=== PATIENT | female | born 1995 | race Caucasian/White ===

== ENCOUNTER 2020-12-26 07:30 | Emergency (ER) | payer MEDICAID, SELFPAY ==
[2020-12-26 07:42] VITALS: BP 126/76; PULSE 75; RESP 14; TEMP 36.8; O2SAT 98; BMI 24.1
--- NOTE | 2020-12-26 07:49 | ED.DENTAL ---
HPI - Dental/Oral General Chief complaint: Dental/Oral Stated complaint: tooth ache Time Seen by Provider: 12/26/20 07:35 Source: patient Mode of arrival: ambulatory Limitations: no limitations History of Present Illness MD Complaint: tooth pain Location: Tooth # (multiple upper R sided molars) Onset (ago): day(s) (2) Duration: constant Severity: moderate Relieving factors: nothing Exacerbating factors: chewing Context: history of dental caries and poor dental care Treatment prior to arrival: none Related Data Previous Rx's Medication Instructions Recorded clindamycin HCl 300 mg capsule 300 mg PO TID 7 Days #21 cap 12/26/20 tramadol 50 mg tablet 50 mg PO TID PRN #12 tab 12/26/20 Allergies Allergy/AdvReac Type Severity Reaction Status Date / Time penicillin V Allergy Unknown Verified 03/25/19 00:00 Penicillins [PENICILLINS] Allergy Unknown SWELLING Unverified 01/22/20 16:36 seasonal Allergy Unknown Uncoded 03/25/19 00:00 Review of Systems Review of Systems: Constitutional : No Fever, No Chills ENT/Mouth : No swallowing difficulty, no change in voice, positive dental pain, positive jaw pain, nofacial swelling Eyes: No Eye Pain, No Swelling Cardiovascular : No Chest Pain, No SOB Respiratory : No Cough, No Sputum Gastrointestinal : No Nausea, No Vomiting, No Diarrhea Genitourinary : No Dysuria Musculoskeletal : No Myalgias Skin : No rash Neuro : No Weakness, No Numbness, No Headache PMFSH Past Medical History Attestation statement: The following information was validated with the patient. Medical History Migraine Social History Social History (Updated 12/26/20 @ 07:57 by Sheila Cyr DO) Patient Tobacco Use Status: Current everyday Tobacco user Use of substances other than those prescribed or required for medical reasons: No Advance Directives: No Advance Directives Information Provided: No Physical Exam Vital Signs: Vital Signs: Last Vital Signs Temp 98.2 F 12/26/20 07:42 Pulse 75 12/26/20 07:42 Resp 14 12/26/20 07:42 BP 126/76 12/26/20 07:42 Pulse Ox 98 12/26/20 07:42 Body Mass Index 24.1 Appearance: Alert. Oriented X3. No acute distress. Eyes: Pupils equal, round and reactive to light. ENT: Pharynx normal. R sided upper molars dental decay mild erythema of gums no abscess noted. Neck: Normal inspection. Neck supple. CVS: Normal heart rate and rhythm. Pulses normal. Respiratory: No respiratory distress. Breath sounds normal. Abdomen: no trauma Skin: Skin warm and dry. Normal skin color. Extremities: No lower extremity edema. Neuro: Oriented X 3. No motor deficit. No sensory deficit. MDM - Dental/Oral MDM Narrative Medical decision making narrative: 25 yo female with R sided upper dental pain no abscess noted, no concern for deeper space infection, has poor dentition - PO abx pain control refer to dentist Discharge Plan Discharge Clinical Impression: Toothache, Dental caries Patient Disposition: Home, Self-Care Instructions: Toothache (ED), Mouth Care (ED) Additional Instructions: return to ED for any worsening symptoms or concerns take a probiotic or yogurt with antibiotics please follow up with your dentist Prescriptions: New clindamycin HCl 300 mg capsule 300 mg PO TID 7 Days Qty: 21 RF: 0 tramadol 50 mg tablet 50 mg PO TID PRN (Reason: pain) Qty: 12 RF: 0
== END 2020-12-26 08:03 | disposition home or self-care (01) ==
PROVIDERS: Emergency Provider Emergency Medicine; PCP Pediatrics
DX: K02.9 Dental caries, unspecified (principal); F17.200 Nicotine dependence, unspecified, uncomplicated; Z71.6 Tobacco abuse counseling; Z79.899 Other long term (current) drug therapy
CPT/HCPCS: 99283

== ENCOUNTER 2021-05-28 08:55 | Emergency (ER) | payer MEDICAID, SELFPAY ==
--- NOTE | ~2021-05-28 | US_ITS ---
EXAMINATION: US OBSTETRICAL ULTRASOUND CLINICAL INFORMATION: Abdominal pain and cramping. Positive test. COMPARISON: None. LMP: Unknown. Gestational age by maternal dates is . Estimated date of delivery by maternal dates is . TECHNIQUE: Transabdominal first trimester OB ultrasound FINDINGS: There is a single intrauterine gestational sac with visible yolk sac, embryo/fetus, and cardiac activity. There is no significant subchorionic hemorrhage or hematoma. HR: 139 beats per minute. CRL (crown rump length): 0.76 cm (6 weeks 5 days +/- 4 days). BALIEE (estimated date of delivery): 01/16/2022 +/- 4 days. MATERNAL ADNEXA: The right maternal ovary measures 3.2 x 2.2 x 1.9 cm. The left maternal ovary measures 2 x 1.9 x 1.4 cm. There is no significant maternal adnexal mass. No maternal pelvic ascites. US/US OB <= 14 weeks fetus IMPRESSION: 1. Single intrauterine gestation with ultrasound gestational age of 6 weeks 5 days +/- 4 days. 2. Estimated date of delivery is 01/16/2022 +/- 4 days. 3. No maternal adnexal mass or pelvic ascites.
[2021-05-28 09:53] VITALS: BP 115/65; PULSE 77; RESP 19; TEMP 36.6; O2SAT 100; BMI 24.1
[2021-05-28 10:19] LABS: MANUAL DIFF FLAG NO
[2021-05-28 10:26] LABS: Appearance Urine HAZY; Color Urine YELLOW; Glucose Urine UA NEG (NEG); Leukocyte Esterase Urine NEG (NEG); Nitrite Urine NEG (NEG); Specific Gravity - Urine >= 1.030 (1.005-1.025); Urine Blood NEG (NEG); Urine Ketones >=80 MG/DL (NEG); Urine Protein TRACE MG/DL (NEG-TRACE)
[2021-05-28 10:27] LABS: UPreg QC Valid YES; Urine Pregnancy POSITIVE (NEGATIVE)
[2021-05-28 10:30] LABS: Basophils Percent Auto 0.4 % (0-2); Eosinophils Absolute Auto 0.1 X10*3/uL (0.0-0.4); Eosinophils Percent Auto 0.5 % (0-4); Hematocrit 40.8 % (37.0-47.0); Hemoglobin 13.8 g/dl (12.0-16.0); Imm Gran Abs Auto 0.02 X10*3/uL (0.00-0.03); Imm Gran Pct Auto 0.2 % (0.0-0.4); Lymphocytes Absolute Auto 2.2 X10*3/uL (1.2-4.9); Lymphocytes Percent Auto 22.2 % (20-40); Mean Corpuscular HGB Conc 33.8 g/dl (31.0-35.0); Mean Corpuscular Hemoglobin 30.6 pg (27.0-33.0); Mean Corpuscular Volume 90.5 fL (80.0-98.0); Mean Platelet Volume 10.3 fL (9.4-12.3); Monocytes Absolute Auto 0.5 X10*3/uL (0.1-1.2); Monocytes Percent Auto 5.5 % (2-11); Neutrophils Percent Auto 71.2 % (45-73); Platelet Count 266 X10*3/uL (160-400); Red Blood Count 4.51 X10*6/uL (4.20-5.50); Red Cell Distribution Width 13.2 % (11.0-16.0); White Blood Count 9.8 X10*3/uL (4.8-10.8)
[2021-05-28 10:39] LABS: COVID-19 Test Negative (Negative)
[2021-05-28 10:42] LABS: Alanine Aminotransferase 7 U/L (0-31); Albumin Level 4.3 g/dL (3.5-5.0); Alkaline Phosphatase 57 U/L (39-117); Anion Gap 11 (12-20); Aspartate Amino Transferase 17 U/L (5-31); Bilirubin Direct 0.2 mg/dL (0.0-0.5); Bilirubin Total 0.3 mg/dL (0.0-1.0); Blood Urea Nitrogen 6 mg/dL (9-16); Calcium 9.8 mg/dL (8.4-10.2); Carbon Dioxide 27 mmol/L (22-29); Chloride 104 mmol/L (96-108); Creatinine Clr Calc Pharmacy 114.1; Estimated Glomerular Filt Rate > 60; Glucose Random 90 mg/dL (60-115); Lipase 11 U/L (8-78); Potassium 4.3 mmol/L (3.3-5.1); Sodium 138 mmol/L (135-145)
--- NOTE | 2021-05-28 11:57 | ED.ABDPAIN ---
HPI - Abdominal Pain General Chief Complaint: Abdominal Pain Stated Complaint: N/V/D Time Seen by Provider: 05/28/21 11:43 Source: patient Mode of arrival: ambulatory History of Present Illness HPI narrative: 25-year-old female with a past medical history of migraines presenting to the ED complaining of diffuse abdominal pain x6 days with associated nausea and vomiting. Admits to taking Zofran this morning with mild relief and smoking THC with relief at home. Denies fever, chills, diarrhea/constipation, dysuria/hematuria, flank pain, vaginal bleeding/discharge. LMP April MD elicited complaint: abdominal pain Onset (ago): day(s) Related Data Previous Rx's Medication Instructions Recorded clindamycin HCl 300 mg capsule 300 mg PO TID 7 Days #21 cap 12/26/20 tramadol 50 mg tablet 50 mg PO TID PRN #12 tab 12/26/20 Allergies Allergy/AdvReac Type Severity Reaction Status Date / Time penicillin V Allergy Unknown Verified 03/25/19 00:00 Penicillins [PENICILLINS] Allergy Unknown SWELLING Unverified 01/22/20 16:36 seasonal Allergy Unknown Uncoded 03/25/19 00:00 Review of Systems Review of Systems Constitutional: No Fever, No Chills, No Fatigue, No Malaise ENT/Mouth: No Ear Pain, No Nasal Congestion, No Sinus Pain, No sore throat Eyes: No Eye Pain, No Swelling, No Redness Cardiovascular: No Chest Pain, No SOB, No Palpitations Respiratory: No Cough, No Dyspnea Gastrointestinal: + Nausea, + Vomiting, No Diarrhea, No Constipation, + Abdominal pain Genitourinary: No irregular bleeding, Novaginal discharge, No Dysuria, No Urinary Frequency, No Hematuria, No Flank Pain, No Urinary Flow Changes Musculoskeletal: No joint pain, No Myalgias, No Joint Swelling Skin: No Skin Lesions, No rash Neuro: No Weakness, No Dizziness, No Headache Yes all other systems are reviewed and are negative Physical Exam Vital Signs: Vital Signs: Last Vital Signs Temp 98.6 F 05/28/21 12:31 Pulse 62 05/28/21 12:31 Resp 12 05/28/21 12:31 BP 99/56 L 05/28/21 12:31 Pulse Ox 100 05/28/21 12:31 BMI result Body Mass Index 24.1 Const: General: cooperative, healthy appearing, no acute distress and well developed Orientation/consciousness: patient oriented x3 Limitations: no limitations HENMT: Head: Yes normal to inspection and Yes atraumatic Ears: hearing grossly normal bilaterally General nose exam: Normal external nose present Face and sinus: Yes normal facial exam Eyes: General: appearance normal, both eyes and all related structures EOM: EOMs intact bilaterally Neck: Neck: Yes normal visual inspection and Yes trachea midline Resp: Effort & Inspection: normal respiratory effort and no respiratory distress Auscultation: clear to auscultation bilaterally, no rales, no rhonchi and no wheezes Cardio: Rate: regular rate Heart sounds: S1 normal heart sound present and S2 normal heart sound present GI: Inspection: Yes normal to inspection Palpation (GI): Soft to palpation, nontender, no guarding and not rigid : General: Yes no CVA tenderness Back/Spine/Pelvis: Back: no CVA tenderness Skin: Rashes: no rashes Wounds: no wounds Neuro: General: patient oriented x3, tone normal and moves all extremities Gait exam (Neuro): Normal gait present Extrem: General: Yes normal to inspection Course Course Course Narrative: -UA negative, urine positive > will obtain HCG -labs otherwise unremarkable -1310--beta quant 56,562 US OB <= 14 weeks fetus IMPRESSION: 1. Single intrauterine gestation with ultrasound gestational age of 6 weeks 5 days +/- 4 days. 2. Estimated date of delivery is 01/16/2022 +/- 4 days. 3. No maternal adnexal mass or pelvic ascites. > results discussed with patient including worrisome signs and symptoms and strict return precautions and need to follow-up with OBGYN. Patient verbalized understanding & feels safe for discharge home at this time MDM - Abdominal Pain MDM Narrative Medical decision making narrative: 25-year-old female with a past medical history of migraines presenting to the ED complaining of diffuse abdominal pain x6 days with associated nausea and vomiting. On exam vital signs stable, NAD, nontoxic appearing, abdomen soft/nontender, no rebound or guarding. No CVAT. Concern for gastroenteritis/food poisoning/gastritis vs . Low concern for appendicitis/diverticulitis/pancreatitis or cholecystitis/phthisis without tenderness on exam Plan: Labs, UA, Differential Diagnosis Differential diagnosis: Likely abdominal pain, constipation, gastroenteritis and peptic ulcer disease Medical Records Attestation: I reviewed the patient's medical records. Lab Data Attestation: I reviewed the patient's lab results. Result diagrams: 05/28/21 10:13 05/28/21 10:13 Labs: Lab Results 05/28/21 05/28/21 05/28/21 Range/Units 10:11 10:12 10:12 WBC (4.8-10.8) X10*3/uL RBC (4.20-5.50) X10*6/uL Hgb (12.0-16.0) g/dl Hct (37.0-47.0) % MCV (80.0-98.0) fL MCH (27.0-33.0) pg MCHC (31.0-35.0) g/dl RDW (11.0-16.0) % Plt Count (160-400) X10*3/uL MPV (9.4-12.3) fL Immature Gran % (Auto) (0.0-0.4) % Neut % (Auto) (45-73) % Lymph % (Auto) (20-40) % [place] % (Auto) (2-11) % Eos % (Auto) (0-4) % Baso % (Auto) (0-2) % Lymph # (Auto) (1.2-4.9) X10*3/uL [place] # (Auto) (0.1-1.2) X10*3/uL Eos # (Auto) (0.0-0.4) X10*3/uL Baso # (Auto) (0.0-0.2) X10*3/uL Abs Immat Gran (auto) (0.00-0.03) X10*3/uL Absolute Neuts (auto) (2.0-8.3) x10*3/uL Absolute Nucleated RBC (0.0-0.012) X10*3/uL Nucleated RBC % (auto) (0.0-0.2) /100WBC Sodium (135-145) mmol/L Potassium (3.3-5.1) mmol/L Chloride (96-108) mmol/L Carbon Dioxide (22-29) mmol/L Anion Gap (12-20) BUN (9-16) mg/dL Creatinine (0.5-1.4) mg/dL Estim Creat Clear Calc Estimated GFR Random Glucose (60-115) mg/dL Calcium (8.4-10.2) mg/dL Total Bilirubin (0.0-1.0) mg/dL Direct Bilirubin (0.0-0.5) mg/dL AST (5-31) U/L ALT (0-31) U/L Alkaline Phosphatase (39-117) U/L Total Protein (6.5-8.0) g/dL Albumin (3.5-5.0) g/dL Lipase (8-78) U/L Beta HCG, Quant mIU/mL Urine Color YELLOW Urine Appearance HAZY Urine pH 6.0 (5.0-8.0) Ur Specific [place] >= 1.030 H (1.005-1.025) Urine Protein TRACE (NEG-TRACE) MG/DL Urine Glucose (UA) NEG (NEG) MG/DL Urine Ketones >=80 (NEG) MG/DL Urine Blood NEG (NEG) Urine Nitrite NEG (NEG) Ur Leukocyte Esterase NEG (NEG) Urine Test POSITIVE H (NEGATIVE) COVID-19 (MERYL) Negative (Negative) COVID-19 Clin Com See Note 05/28/21 05/28/21 Range/Units 10:13 10:13 WBC 9.8 (4.8-10.8) X10*3/uL RBC 4.51 (4.20-5.50) X10*6/uL Hgb 13.8 (12.0-16.0) g/dl Hct 40.8 (37.0-47.0) % MCV 90.5 (80.0-98.0) fL MCH 30.6 (27.0-33.0) pg MCHC 33.8 (31.0-35.0) g/dl RDW 13.2 (11.0-16.0) % Plt Count 266 (160-400) X10*3/uL MPV 10.3 (9.4-12.3) fL Immature Gran % (Auto) 0.2 (0.0-0.4) % Neut % (Auto) 71.2 (45-73) % Lymph % (Auto) 22.2 (20-40) % [place] % (Auto) 5.5 (2-11) % Eos % (Auto) 0.5 (0-4) % Baso % (Auto) 0.4 (0-2) % Lymph # (Auto) 2.2 (1.2-4.9) X10*3/uL [place] # (Auto) 0.5 (0.1-1.2) X10*3/uL Eos # (Auto) 0.1 (0.0-0.4) X10*3/uL Baso # (Auto) 0.0 (0.0-0.2) X10*3/uL Abs Immat Gran (auto) 0.02 (0.00-0.03) X10*3/uL Absolute Neuts (auto) 7.0 (2.0-8.3) x10*3/uL Absolute Nucleated RBC 0.000 (0.0-0.012) X10*3/uL Nucleated RBC % (auto) 0.0 (0.0-0.2) /100WBC Sodium 138 (135-145) mmol/L Potassium 4.3 (3.3-5.1) mmol/L Chloride 104 (96-108) mmol/L Carbon Dioxide 27 (22-29) mmol/L Anion Gap 11 L (12-20) BUN 6 L (9-16) mg/dL Creatinine 0.69 (0.5-1.4) mg/dL Estim Creat Clear Calc 114.1 Estimated GFR > 60 Random Glucose 90 (60-115) mg/dL Calcium 9.8 (8.4-10.2) mg/dL Total Bilirubin 0.3 (0.0-1.0) mg/dL Direct Bilirubin 0.2 (0.0-0.5) mg/dL AST 17 (5-31) U/L ALT 7 (0-31) U/L Alkaline Phosphatase 57 (39-117) U/L Total Protein 7.0 (6.5-8.0) g/dL Albumin 4.3 (3.5-5.0) g/dL Lipase 11 (8-78) U/L Beta HCG, Quant 86478 mIU/mL Urine Color Urine Appearance Urine pH (5.0-8.0) Ur Specific [place] (1.005-1.025) Urine Protein (NEG-TRACE) MG/DL Urine Glucose (UA) (NEG) MG/DL Urine Ketones (NEG) MG/DL Urine Blood (NEG) Urine Nitrite (NEG) Ur Leukocyte Esterase (NEG) Urine Test (NEGATIVE) COVID-19 (MERYL) (Negative) COVID-19 Clin Com Discharge Plan Discharge Clinical Impression: at early stage Patient Disposition: Home, Self-Care Instructions: (ED) Additional Instructions: You are . You need to establish care with an OBGYN If you develop constant worsening abdominal pain, vaginal bleeding/discharge, fever, you are unable to eat or drink please return to the ED No drinking alcohol or using drugs Prescriptions: No Action clindamycin HCl 300 mg capsule 300 mg PO TID 7 Days Qty: 21 RF: 0 tramadol 50 mg tablet 50 mg PO TID PRN (Reason: pain) Qty: 12 RF: 0 Referrals: Federico Montanez MD [Physician] - 5 days [facility] Past Medical History Attestation statement: The following information was validated with the patient. Medical History Migraine Social History Social History Alcohol intake: never Patient Tobacco Use Status: Current everyday Tobacco user Advance Directives: No Advance Directives Information Provided: No
[2021-05-28 12:31] VITALS: BP 99/56; PULSE 62; RESP 12; TEMP 37; O2SAT 100
[2021-05-28 12:44] LABS: HCG Quantitative 56562 mIU/mL
== END 2021-05-28 14:05 | disposition home or self-care (01) ==
PROVIDERS: Physician Assistant; Emergency Provider Internal Medicine; PCP Pediatrics
DX: O26.891 Other specified pregnancy related conditions, first trimester (principal); R10.9 Unspecified abdominal pain; Z3A.01 Less than 8 weeks gestation of pregnancy; Z20.822 Contact with and (suspected) exposure to COVID-19; O99.331 Smoking (tobacco) complicating pregnancy, first trimester; F17.200 Nicotine dependence, unspecified, uncomplicated
CPT/HCPCS: 76801; 80048; 80076; 81003; 81025; 83690; 84702; 85025; 87635; 99284

== ENCOUNTER 2021-05-31 08:21 | Emergency (ER) | payer MEDICAID, SELFPAY ==
--- NOTE | ~2021-05-31 | US_ITS ---
EXAMINATION: US OBSTETRICAL ULTRASOUND CLINICAL INFORMATION: Cramping and abdominal pain and vomiting. 7 weeks . COMPARISON: Previous exam 05/28/2021. LMP: Unknown. Gestational age by maternal dates is . Estimated date of delivery by maternal dates is . TECHNIQUE: Transabdominal first trimester OB ultrasound FINDINGS: There is a single intrauterine gestational sac with visible yolk sac, embryo/fetus, and cardiac activity. There is no significant subchorionic hemorrhage or hematoma. HR: 147 beats per minute. CRL (crown rump length): 1.1 cm (7 weeks 2 days +/- 4 days). BAILEE (estimated date of delivery): 01/15/2022 +/- 4 days. MATERNAL ADNEXA: The right maternal ovary measures 3.3 x 1.8 x 4 cm. The left maternal ovary measures 2.1 x 1.8 x 2.2 cm. There is no significant maternal adnexal mass. No maternal pelvic ascites. US/US OB <= 14 weeks fetus IMPRESSION: 1. Single intrauterine gestation with ultrasound gestational age of 7 weeks 2 days +/- 4 days. 2. Estimated date of delivery is 01/15/2022 +/- 4 days. 3. No maternal adnexal mass or pelvic ascites.
[2021-05-31 08:39] VITALS: BP 123/84; PULSE 72; RESP 16; TEMP 36.8; O2SAT 99; BMI 25.1
--- NOTE | 2021-05-31 08:52 | ED_ITS ---
HPI - Abdominal Pain General Chief Complaint: Abdominal Pain Stated Complaint: cramping,vomiting - 7wks preg Time Seen by Provider: 05/31/21 08:50 Source: patient Limitations: no limitations History of Present Illness HPI narrative: This is a 25-year-old female who is about 7 weeks . She is 1 para 0. The last week she has had progressive nausea and feels like she has been unable to hold much down. She has been drinking some water. She nonetheless feels dehydrated. She has soreness in her abdomen from vomiting so much. She denies diarrhea, has not had a bowel movement in 2 days. She denies any vaginal bleeding. She denies any dysuria. She denies fever. Related Data Previous Rx's Medication Instructions Recorded clindamycin HCl 300 mg capsule 300 mg PO TID 7 Days #21 cap 12/26/20 tramadol 50 mg tablet 50 mg PO TID PRN #12 tab 12/26/20 metoclopramide HCl 10 mg tablet 10 mg PO Q6H PRN #12 tab 05/31/21 (Reglan) Allergies Allergy/AdvReac Type Severity Reaction Status Date / Time penicillin V Allergy Unknown Verified 03/25/19 00:00 Penicillins Allergy Unknown SWELLING Unverified 01/22/20 16:36 [PENICILLINS] seasonal Allergy Unknown Uncoded 03/25/19 00:00 Review of Systems Review of Systems Yes all other systems are reviewed and are negative Constitutional: Denies chills and Denies fever(s) Eyes: Reports no additional eye complaints Reports system reviewed and no additional complaints, except as documented Cardiovascular: Reports no additional cardiovascular complaints Respiratory: Reports no additional respiratory complaints Gastrointestinal: Reports abdominal pain (Cramping mostly mid to upper abdomina l), Reports nausea and Reports vomiting Genitourinary: Reports no additional female genitourinary complaints Musculoskeletal: Reports no additional musculoskeletal complaints Reports system reviewed and no additional complaints, except as documented and Denies Sensory deficit (Neuro) Physical Exam Verdana 4l Vital Signs: Verdana 4d Verdana 4d Vital Signs: Verdana 4d Verdana 4Bd Last Vital Signs Verdana 4d Flute Polisher New 4d Flute Polisher New 4d Temp 98.2 F 05/31/21 08:39 Flute Polisher New 4d Pulse 75 05/31/21 11:17 Flute Polisher New 4d Resp 17 01/25/22 11:17 BP 115/66 05/31/21 11:17 Pulse Ox 100 05/31/21 11:17 BMI result Body Mass Index 25.1 Const: General: cooperative, no acute distress and alert Orientation/consciousness: patient oriented x3 HENMT: Head: Yes normal to inspection Eyes: General: appearance normal, both eyes and all related structures Eyelids: Yes eyelids normal Conjunctivae: conjunctivae normal Pupils: Equal, round and reactive pupils present Neck: Neck: Yes normal visual inspection and Yes supple Chest: Chest palpation & inspection: normal inspection of the chest Resp: Effort & Inspection: normal respiratory effort Auscultation: clear to auscultation bilaterally Cardio: Rate: regular rate Rhythm: regular rhythm Heart sounds: S1 normal heart sound present, S2 normal heart sound present, no gallops, no murmurs and no rubs GI: Palpation (GI): Soft to palpation, Tenderness to palpation present (GI) (Mild and diffuse abdominal tenderness) and Other GI palpation findings present (Non- distended) Auscultation: normal bowel sounds Skin: General skin exam: no rashes or lesions noted Neuro: General: patient oriented x3, no focal motor deficits and CN's II-XI intact bilaterally Cranial nerves: Yes Equal, round and reactive pupils present Cognition (Neuro): normal cognition Motor exam (neuro): 5/5 motor strength present throughout Sensory Exam: No Sensory deficit (Neuro) Extrem: General: Yes normal to inspection and Yes no pedal edema Psych: Appearance: grossly normal Affect: normal affect MDM - Abdominal Pain MDM Narrative Medical decision making narrative: Patient about 7 weeks with nausea and vomiting, some abdominal cramping . Ultrasound shows a normal intrauterine at around 7 weeks, EDC January 15. Patient has no vaginal bleeding. Patient states she has talked to her OBGYN who had called in a prescription for vitamins, and I am presuming also pyridoxine. Will prescribe Reglan to take for any vomiting not controlled by vitamins. Patient had a benign abdominal examination, negative urinalysis Lab Data Attestation: I reviewed the patient's lab results. Result diagrams: 05/31/21 09:05 05/31/21 10:06 Labs: Lab Results 05/31/21 05/31/21 05/31/21 Range/Units 09:05 10:06 11:07 WBC 9.9 (4.8-10.8) X10*3/uL RBC 4.25 (4.20-5.50) X10*6/uL Hgb 12.8 (12.0-16.0) g/dl Hct 37.3 (37.0-47.0) % MCV 87.8 (80.0-98.0) fL MCH 30.1 (27.0-33.0) pg MCHC 34.3 (31.0-35.0) g/dl RDW 12.8 (11.0-16.0) % Plt Count 244 (160-400) X10*3/uL MPV 10.2 (9.4-12.3) fL Immature Gran % (Auto) 0.4 (0.0-0.4) % Neut % (Auto) 79.6 H (45-73) % Lymph % (Auto) 15.5 L (20-40) % [place] % (Auto) 4.2 (2-11) % Eos % (Auto) 0.1 (0-4) % Baso % (Auto) 0.2 (0-2) % Lymph # (Auto) 1.5 (1.2-4.9) X10*3/uL [place] # (Auto) 0.4 (0.1-1.2) X10*3/uL Eos # (Auto) 0.0 (0.0-0.4) X10*3/uL Baso # (Auto) 0.0 (0.0-0.2) X10*3/uL Abs Immat Gran (auto) 0.04 H (0.00-0.03) X10*3/uL Absolute Neuts (auto) 7.9 (2.0-8.3) x10*3/uL Absolute Nucleated RBC 0.000 (0.0-0.012) X10*3/uL Nucleated RBC % (auto) 0.0 (0.0-0.2) /100WBC Sodium 136 (135-145) mmol/L Potassium 4.0 (3.3-5.1) mmol/L Chloride 108 (96-108) mmol/L Carbon Dioxide 19 L (22-29) mmol/L Anion Gap 13 (12-20) BUN 5 L (9-16) mg/dL Creatinine 0.62 (0.5-1.4) mg/dL Estim Creat Clear Calc 137.2 Estimated GFR > 60 Random Glucose 95 (60-115) mg/dL Calcium 8.8 D (8.4-10.2) mg/dL Total Bilirubin 0.4 (0.0-1.0) mg/dL AST 14 (5-31) U/L ALT < 6 (0-31) U/L Alkaline Phosphatase 49 (39-117) U/L Total Protein 6.4 L (6.5-8.0) g/dL Albumin 3.9 (3.5-5.0) g/dL Urine Color YELLOW Urine Appearance HAZY Urine pH 6.5 (5.0-8.0) Ur Specific [place] 1.020 (1.005-1.025) Urine Protein TRACE (NEG-TRACE) MG/DL Urine Glucose (UA) NEG (NEG) MG/DL Urine Ketones >=80 (NEG) MG/DL Urine Blood NEG (NEG) Urine Nitrite NEG (NEG) Ur Leukocyte Esterase NEG (NEG) Imaging Data ultrasound: Radiologist's impression: IMPRESSION: 1. Single intrauterine gestation with ultrasound gestational age of? 7 weeks 2 days +/- 4 days. 2. Estimated date of delivery is 01/15/2022 +/- 4 days. 3. No maternal adnexal mass or pelvic ascites. Discharge Plan Discharge Clinical Impression: Hyperemesis Patient Disposition: Home, Self-Care Instructions: Hyperemesis Gravidarum (ED) Additional Instructions: Start taking the vitamins as ordered by your OBGYN. This likely also includes pyridoxine which can help with nausea. If these are not controlling her nausea vomiting, use the Reglan as prescribed. Continue drinking liquids a little bit of time to keep herself hydrated. Try to eat or drink chicken with rice soup, as this will provide some protein and carbohydrate. Return for any new or worsened symptoms such as progressive abdominal pain, uncontrolled vomiting Prescriptions: New metoclopramide HCl [Reglan] 10 mg tablet 10 mg PO Q6H PRN (Reason: nausea and vomiting) Qty: 12 0RF No Action clindamycin HCl 300 mg capsule 300 mg PO TID 7 Days Qty: 21 0RF tramadol 50 mg tablet 50 mg PO TID PRN (Reason: pain) Qty: 12 0RF Interventions: ED Discharge Assessment Last Done: 05/31/21 12:05 Discharge Date/Time: 05/31/21 12:06 [facility] Past Medical History Medical History Migraine Social History Social History Alcohol intake: never Patient Tobacco Use Status: Current everyday Tobacco user Advance Directives: No Advance Directives Information Provided: No Patient : Yes
[2021-05-31 09:10] LABS: MANUAL DIFF FLAG NO
[2021-05-31 09:11] LABS: Basophils Percent Auto 0.2 % (0-2); Eosinophils Percent Auto 0.1 % (0-4); Hematocrit 37.3 % (37.0-47.0); Hemoglobin 12.8 g/dl (12.0-16.0); Imm Gran Abs Auto 0.04 X10*3/uL (0.00-0.03); Imm Gran Pct Auto 0.4 % (0.0-0.4); Lymphocytes Absolute Auto 1.5 X10*3/uL (1.2-4.9); Lymphocytes Percent Auto 15.5 % (20-40); Mean Corpuscular HGB Conc 34.3 g/dl (31.0-35.0); Mean Corpuscular Hemoglobin 30.1 pg (27.0-33.0); Mean Corpuscular Volume 87.8 fL (80.0-98.0); Mean Platelet Volume 10.2 fL (9.4-12.3); Monocytes Absolute Auto 0.4 X10*3/uL (0.1-1.2); Monocytes Percent Auto 4.2 % (2-11); Neutrophils Absolute Auto 7.9 x10*3/uL (2.0-8.3); Neutrophils Percent Auto 79.6 % (45-73); Platelet Count 244 X10*3/uL (160-400); Red Blood Count 4.25 X10*6/uL (4.20-5.50); Red Cell Distribution Width 12.8 % (11.0-16.0); White Blood Count 9.9 X10*3/uL (4.8-10.8)
[2021-05-31] MEDS: ondansetron HCL 4 MG/2 ML VIAL IVPUSH (09:11)
[2021-05-31] MEDS: 0.9 % Sodium Chloride 1,000 ML 999 ML IV (09:11)
[2021-05-31 10:45] LABS: Alanine Aminotransferase < 6 U/L (0-31); Albumin Level 3.9 g/dL (3.5-5.0); Alkaline Phosphatase 49 U/L (39-117); Anion Gap 13 (12-20); Aspartate Amino Transferase 14 U/L (5-31); Bilirubin Total 0.4 mg/dL (0.0-1.0); Blood Urea Nitrogen 5 mg/dL (9-16); Calcium 8.8 mg/dL (8.4-10.2); Carbon Dioxide 19 mmol/L (22-29); Chloride 108 mmol/L (96-108); Creatinine Clr Calc Pharmacy 137.2; Estimated Glomerular Filt Rate > 60; Glucose Random 95 mg/dL (60-115); Sodium 136 mmol/L (135-145); Total Protein 6.4 g/dL (6.5-8.0)
[2021-05-31 11:17] VITALS: BP 115/66; PULSE 75; RESP 17; O2SAT 100
[2021-05-31 11:50] LABS: Appearance Urine HAZY; Color Urine YELLOW; Glucose Urine UA NEG (NEG); Leukocyte Esterase Urine NEG (NEG); Nitrite Urine NEG (NEG); PH 6.5 (5.0-8.0); Urine Blood NEG (NEG); Urine Ketones >=80 MG/DL (NEG); Urine Protein TRACE MG/DL (NEG-TRACE)
== END 2021-05-31 12:06 | disposition home or self-care (01) ==
PROVIDERS: Emergency Provider Emergency Medicine; PCP Pediatrics
DX: O21.0 Mild hyperemesis gravidarum (principal); Z3A.01 Less than 8 weeks gestation of pregnancy; Z79.899 Other long term (current) drug therapy
CPT/HCPCS: 36415; 76801; 80053; 81003; 85025; 96361; 96374; 99284; J2405

== ENCOUNTER → 2021-06-13 08:05 | Outpatient (BNVA) | payer MEDICAID, SELFPAY | PROVIDERS: PCP Pediatrics; Visit Provider Advanced Practice Midwife | DX: O21.9 Vomiting of pregnancy, unspecified (principal); N92.6 Irregular menstruation, unspecified; Z3A.01 Less than 8 weeks gestation of pregnancy | CPT/HCPCS: 99202 ==

== ENCOUNTER → 2021-06-22 09:52 | Outpatient (BNVA) | payer MEDICAID, SELFPAY | PROVIDERS: PCP Pediatrics; Visit Provider Advanced Practice Midwife | DX: Z13.89 Encounter for screening for other disorder (principal) | CPT/HCPCS: 99212 ==

== ENCOUNTER 2021-07-08 12:08 | Outpatient (REF) | payer MEDICAID, SELFPAY ==
[2021-07-08 16:23] LABS: CT PCR NOT DETECTED (Not Detect.); NG PCR NOT DETECTED (Not Detect.)
== END 2021-07-08 12:09 | disposition home or self-care (01) ==
LOC: HO.LAB 12:08
PROVIDERS: PCP Pediatrics; Visit Provider Advanced Practice Midwife
DX: Z34.91 Encounter for supervision of normal pregnancy, unspecified, first trimester (principal)
CPT/HCPCS: 87491; 87591; 88142

== ENCOUNTER 2021-07-08 12:50 | Outpatient (REF) | payer MEDICAID, SELFPAY ==
--- NOTE | ~2021-07-08 | US_ITS ---
EXAMINATION: OBSTETRICAL ULTRASOUND, FIRST TRIMESTER HISTORY: 25-year-old at the 12.5 weeks of gestation NT screening COMPARISON: 05/31/2021 TECHNIQUE: Real time transabdominal imaging with color and M-mode Doppler. FINDINGS: A single, live IUP CRL of 63.6 mm c/w 12.6wks is noted. Heart Rate: 160 beats per minute. Normal yolk sac seen. NT was 1.1.mm. NB Present The embryo appears sonographically wnl for this GA. Both maternal ovaries are seen and appear normal. GESTATIONAL AGE: 1. Established GA: 12.5 wks 2. GA from [facility]: 12.6 wks ESTIMATED DATE OF DELIVERY: 1. Established BAILEE: 01/15/2022 2. BAILEE from [facility]: 01/14/2022 US/US OB 1T nuc measure IMPRESSION: 1. A single live IUP 2. Size equals dates 3. NT of 1.1 mm MFM Consultation: I reviewed the ultrasound findings along with significance of NT measurement. The NT of less than 3mm is generally reassuring. However, the sensitivity for T21 detection is only 60%. I reviewed the availability of serum aneuploidy screening which includes cell-free DNA and placental protein based tests. I discussed the sensitivity, false-positive rate, and other limitations associated with each test. I also reviewed the availability of invasive diagnostic tests that are associated small but definite risk of miscarriage. We also reviewed the differences between screening tests and diagnostic tests. After our discussion, she opted for the First trimester screening that is based on cell-free DNA or non-invasive testing (NIPT). The result will be faxed to your office in approximately 7 days. A follow up at 18 weeks for survey has been scheduled. Thank you very much for this referral. Total time 30 minutes. The time spent was devoted to counseling the patient about the disease and diagnosis, coordinating care including reviewing her records, pertinent lab data and studies, as well as discussing diagnostic evaluation and workup, plan therapeutic interventions and future disposition of care. This includes any additional research needed to obtain further information in formulating the plan of care of this patient. This note was generated with a voice recognition program. Please excuse any errors which may have been overlooked during my review of this note. Sometimes these errors may affect the content or meaning of a given sentence.
== END 2021-07-08 12:51 | disposition home or self-care (01) ==
LOC: HO.US 12:50
PROVIDERS: PCP Pediatrics; Visit Provider Advanced Practice Midwife
DX: Z34.92 Encounter for supervision of normal pregnancy, unspecified, second trimester (principal); Z3A.12 12 weeks gestation of pregnancy
CPT/HCPCS: 76813; 99212

== ENCOUNTER 2021-07-13 08:06 | Outpatient (REF) | payer MEDICAID, SELFPAY ==
[2021-07-13 10:13] LABS: Hematocrit 37.4 % (37.0-47.0); Hemoglobin 12.5 g/dl (12.0-16.0); Mean Corpuscular HGB Conc 33.4 g/dl (31.0-35.0); Mean Corpuscular Hemoglobin 30.3 pg (27.0-33.0); Mean Corpuscular Volume 90.8 fL (80.0-98.0); Mean Platelet Volume 11.1 fL (9.4-12.3); Platelet Count 218 X10*3/uL (160-400); Red Blood Count 4.12 X10*6/uL (4.20-5.50); Red Cell Distribution Width 13.4 % (11.0-16.0); White Blood Count 9.1 X10*3/uL (4.8-10.8)
[2021-07-13 10:50] LABS: Alanine Aminotransferase 7 U/L (0-31); Aspartate Amino Transferase 16 U/L (5-31); Blood Urea Nitrogen 5 mg/dL (9-16); Estimated Glomerular Filt Rate > 60; Glucose 1 Hour PP 50gm Dose 74 mg/dL (60-140)
[2021-07-13 11:04] LABS: ~HepC Num1 3.54 S/CO (0.00-0.79); ~Hepatitis C Antibody Reactive (Nonreactive)
[2021-07-13 11:13] LABS: HBsAGNum1 0.21 S/CO (0.00-0.99); HIV AB/AG Nonreactive (Nonreactive); HIV Num 1 0.12 S/CO (0.00-0.99); Hepatitis B Surface Antigen Negative (Negative)
[2021-07-13 11:23] LABS: Amphetamine Screen Urine Not Detected (Not Detect); Barbiturates, Urine Not Detected (Not Detect); Benzodiazepines Screen Urine Not Detected (Not Detect); Cannabinoid Screen Urine POSITIVE (Not Detect); Cocaine Screen Urine Not Detected (Not Detect); Creatinine Urine 290.46 mg/dL; Fentanyl, urine Not Detected (Not Detect); Opiate Screen Urine Not Detected (Not Detect); Phencyclidine Screen Urine Not Detected (Not Detect); Protein/Creatinine Ratio, Ur 0.05 (<0.2); Total Protein Urine Random 15 mg/dL (<12)
[2021-07-13 11:36] LABS: Syphilis Screen Nonreactive (Nonreactive)
[2021-07-14 09:01] LABS: Rubella IgG Antibody <0.90 Index; Varicella IgG Antibody <135.00 index
== END 2021-07-13 08:07 | disposition home or self-care (01) ==
LOC: HO.LAB 08:06
PROVIDERS: PCP Pediatrics; Visit Provider Advanced Practice Midwife
DX: Z34.90 Encounter for supervision of normal pregnancy, unspecified, unspecified trimester (principal); Z84.89 Family history of other specified conditions
CPT/HCPCS: 80307; 82565; 84156; 84450; 84460; 84520; 84550; 85027; 86762; 86780; 86787; 86803; 86850; 86900; 86901; 87086; 87340; 87389

== ENCOUNTER 2021-08-08 11:50 | Outpatient (REF) | payer MEDICAID, SELFPAY | END 2021-08-08 11:51 | disposition home or self-care (01) | LOC: HO.LAB 11:50 | PROVIDERS: PCP Pediatrics; Visit Provider Advanced Practice Midwife | DX: O99.342 Other mental disorders complicating pregnancy, second trimester (principal); F41.9 Anxiety disorder, unspecified; O99.112 Other diseases of the blood and blood-forming organs and certain disorders involving the immune mechanism complicating pregnancy, second trimester; B19.20 Unspecified viral hepatitis C without hepatic coma; O26.892 Other specified pregnancy related conditions, second trimester; G43.909 Migraine, unspecified, not intractable, without status migrainosus; Z3A.17 17 weeks gestation of pregnancy; J30.2 Other seasonal allergic rhinitis; Z87.891 Personal history of nicotine dependence; Z88.1 Allergy status to other antibiotic agents; Z88.0 Allergy status to penicillin | CPT/HCPCS: 81003; 87086; 99212 ==

== ENCOUNTER 2021-08-26 09:55 | Outpatient (REF) | payer MEDICAID, SELFPAY ==
--- NOTE | ~2021-08-26 | US_ITS ---
EXAMINATION: US OBSTETRICAL CLINICAL INFORMATION: 26-year-old at 19.5 weeks of gestation Screening for anomaly COMPARISON: 07/08/2021 TECHNIQUE: Real-time transabdominal ultrasound was performed using C1-5 megahertz transducer. FINDINGS: A single, active, fetus is seen in vertex presentation. The placenta is anterior without previa, and the amniotic fluid volume is wnl. MEASUREMENTS: 1. Biparietal Diameter: 4.95 cm; 21.0 wks 2. Occipital Frontal Diameter: 6.3 cm 3. Head Circumference: 17.8 cm; 17.2 wks 4. Abdominal Circumference: 15.2 cm; 20.3 wks 5. Femur Length: 3.4 cm; 20.6 wks 6. Humerus Length: 3.2 cm; 20.6 wks 7. Tibia Length: 3.0 cm; 21.1 wks 8. Ulna Length: 3.1 cm; 21.5 wks 9. Lateral ventricle: 0.64 cm 10. Cerebellum: 2.1 cm; 21.2 wks 11. Cisterna Magna: 0.52 cm 12. Nuchal Fold: 4.0 mm 13. Heart Rate: 156 beats per minute Rt ovary: normal Lt ovary: normal Cervical length 3.2 cm on T/A. GESTATIONAL AGE: 1. Established GA: 19.5 wks 2. GA from [facility]: 20.5 wks ESTIMATED DATE OF DELIVERY: 1. Established BAILEE: 01/15/2022 2. BAILEE from [facility]: 01/08/2022 ANATOMY: The visualized anatomy includes but not limited to: 1. Cranium: Normal 2. Intracranial anatomy: cavum septum pellucidi, lateral ventricles, choroid plexus, cerebellum, posterior fossa, third and fourth ventricles. 3. face: orbits, lip/palate, profile, nasal bone 4. Heart: four-chamber view of the heart, ventricular septum, foramen ovale, pulmonary vein, left and right outflow tracts, three-vessel view, 3 vessel trachea view, aortic and ductal arches, situs.. 5. Diaphragm: Normal 6. Abdominal wall: Normal 7. Cord Insertion: Normal 8. Spine: Cervical, thoracic, lumbar, sacral. 9. Stomach: Normal size and shape 10. Right Kidney: Normal 11. Left Kidney: Normal 12. 3 vessel cord: Normal 13. Upper extremity: Open hands, fifth digit. 14. Lower extremity: Tibia, fibula, bilateral feet. 15. Bladder: Normal 16. Genitalia: Female, patient aware US/US OB /maternal detail IMPRESSION: 1. Single, living, intrauterine with appropriate biometry. 2. Normal survey DISCUSSION: I reviewed today's ultrasound findings. We discussed the limitations of ultrasound in diagnosing aneuploidy and other congenital abnormalities. I reviewed the differences between screening test and diagnostic test. Amniocentesis was discussed and declined. She was informed that the baseline incidence of congenital abnormalities is approximately 3-5%. Not all these conditions are diagnosable in utero. RECOMMENDATIONS: Follow-up when necessary Thank you for allowing me to participate in her care. Total time 20 minutes. The time spent was devoted to counseling the patient about the disease and diagnosis, coordinating care including reviewing her records, pertinent lab data and studies, as well as discussing diagnostic evaluation and workup, plan therapeutic interventions and future disposition of care. This includes any additional research needed to obtain further information in formulating the plan of care of this patient. This note was generated with a voice recognition program. Please excuse any errors which may have been overlooked during my review of this note. Sometimes these errors may affect the content or meaning of a given sentence.
== END 2021-08-26 09:56 | disposition home or self-care (01) ==
LOC: HO.US 09:55
PROVIDERS: Visit Provider Advanced Practice Midwife
DX: Z34.92 Encounter for supervision of normal pregnancy, unspecified, second trimester (principal); Z3A.19 19 weeks gestation of pregnancy
CPT/HCPCS: 76811

== ENCOUNTER → 2021-09-09 11:12 | Outpatient (BNVA) | payer MEDICAID, SELFPAY | PROVIDERS: PCP Pediatrics; Visit Provider Advanced Practice Midwife | DX: O98.412 Viral hepatitis complicating pregnancy, second trimester (principal); R76.8 Other specified abnormal immunological findings in serum; Z3A.21 21 weeks gestation of pregnancy; Z86.19 Personal history of other infectious and parasitic diseases | CPT/HCPCS: 99212 ==

== ENCOUNTER → 2021-10-07 13:38 | Outpatient (BNVA) | payer MEDICAID, SELFPAY | PROVIDERS: PCP Pediatrics; Visit Provider Advanced Practice Midwife | DX: O98.412 Viral hepatitis complicating pregnancy, second trimester (principal); R76.8 Other specified abnormal immunological findings in serum | CPT/HCPCS: 99212 ==

== ENCOUNTER → 2021-10-17 15:00 | Outpatient (BNVA) | payer MEDICAID, SELFPAY | PROVIDERS: PCP Pediatrics; Referring Provider Pediatrics; Visit Provider Nurse Practitioner | DX: Z86.19 Personal history of other infectious and parasitic diseases (principal) | CPT/HCPCS: 99202 ==

== ENCOUNTER 2021-10-18 07:40 | Outpatient (REF) | payer MEDICAID, SELFPAY ==
[2021-10-18 08:43] LABS: Hematocrit 36.3 % (37.0-47.0); Hemoglobin 12.1 g/dl (12.0-16.0); Mean Corpuscular HGB Conc 33.3 g/dl (31.0-35.0); Mean Corpuscular Hemoglobin 30.6 pg (27.0-33.0); Mean Corpuscular Volume 91.7 fL (80.0-98.0); Mean Platelet Volume 10.7 fL (9.4-12.3); Platelet Count 235 X10*3/uL (160-400); Red Blood Count 3.96 X10*6/uL (4.20-5.50); Red Cell Distribution Width 13.2 % (11.0-16.0); White Blood Count 11.8 X10*3/uL (4.8-10.8)
[2021-10-18 09:13] LABS: Alanine Aminotransferase 8 U/L (0-31); Albumin Level 3.5 g/dL (3.5-5.0); Alkaline Phosphatase 86 U/L (39-117); Aspartate Amino Transferase 22 U/L (5-31); Bilirubin Direct < 0.2 mg/dL (0.0-0.5); Bilirubin Total 0.3 mg/dL (0.0-1.0); Total Protein 6.2 g/dL (6.5-8.0)
[2021-10-19 08:17] LABS: Syphilis Screen Nonreactive (Nonreactive)
[2021-10-19 16:41] LABS: HCV RNA PCR Qn <1.18 NOT DETECTED Log IU/mL (NOT DETECTED); HCV RNA PCR Qn <15 NOT DETECTED IU/mL (NOT DETECTED)
== END 2021-10-18 07:41 | disposition home or self-care (01) ==
LOC: HO.LAB 07:40
PROVIDERS: Absent Provider Advanced Practice Midwife; PCP Pediatrics; Visit Provider Nurse Practitioner
DX: Z34.92 Encounter for supervision of normal pregnancy, unspecified, second trimester (principal); Z86.19 Personal history of other infectious and parasitic diseases; Z3A.00 Weeks of gestation of pregnancy not specified
CPT/HCPCS: 36415; 80076; 85027; 86780; 87522; 87902

== ENCOUNTER → 2021-10-21 08:24 | Outpatient (BNVA) | payer MEDICAID, SELFPAY | PROVIDERS: PCP Pediatrics; Visit Provider Advanced Practice Midwife | DX: O99.612 Diseases of the digestive system complicating pregnancy, second trimester (principal); K59.00 Constipation, unspecified; K21.9 Gastro-esophageal reflux disease without esophagitis; O26.892 Other specified pregnancy related conditions, second trimester; R12 Heartburn; O98.412 Viral hepatitis complicating pregnancy, second trimester; B19.20 Unspecified viral hepatitis C without hepatic coma; O99.342 Other mental disorders complicating pregnancy, second trimester; F41.9 Anxiety disorder, unspecified; Z3A.27 27 weeks gestation of pregnancy | CPT/HCPCS: 99212 ==

== ENCOUNTER → 2021-11-01 13:00 | Outpatient (BNVA) | payer MEDICAID, SELFPAY | PROVIDERS: PCP Pediatrics; Visit Provider Nurse Practitioner | DX: Z86.19 Personal history of other infectious and parasitic diseases (principal) | CPT/HCPCS: 99212 ==

== ENCOUNTER → 2021-11-11 14:14 | Outpatient (BNVA) | payer MEDICAID, SELFPAY | PROVIDERS: PCP Pediatrics; Visit Provider Advanced Practice Midwife | DX: Z34.83 Encounter for supervision of other normal pregnancy, third trimester (principal); Z3A.30 30 weeks gestation of pregnancy | CPT/HCPCS: 81003; 99212 ==

== ENCOUNTER → 2021-11-25 10:59 | Outpatient (BNVA) | payer MEDICAID, SELFPAY | PROVIDERS: PCP Pediatrics; Visit Provider Advanced Practice Midwife | DX: O99.613 Diseases of the digestive system complicating pregnancy, third trimester (principal); K59.00 Constipation, unspecified; O21.9 Vomiting of pregnancy, unspecified; O99.343 Other mental disorders complicating pregnancy, third trimester; F41.9 Anxiety disorder, unspecified; O98.413 Viral hepatitis complicating pregnancy, third trimester; B19.20 Unspecified viral hepatitis C without hepatic coma; O26.893 Other specified pregnancy related conditions, third trimester; R12 Heartburn; Z3A.32 32 weeks gestation of pregnancy; Z23 Encounter for immunization | CPT/HCPCS: 90471; 90715; 99212 ==

== ENCOUNTER → 2022-01-19 09:39 | Outpatient (BNVA) | payer MEDICAID, SELFPAY | PROVIDERS: Visit Provider Advanced Practice Midwife | DX: Z39.2 Encounter for routine postpartum follow-up (principal) | CPT/HCPCS: 99212 ==

== ENCOUNTER 2022-02-11 08:03 | Emergency (ER) | payer MEDICAID, SELFPAY ==
[2022-02-11 08:10] VITALS: BP 124/78; PULSE 104; RESP 17; TEMP 36.6; O2SAT 96; BMI 25.0
[2022-02-11 08:30] LABS: Appearance Urine Clear; Color Urine Dark Yellow; Glucose Urine UA Negative (Negative); Leukocyte Esterase Urine Negative (Negative); Nitrite Urine Negative (Negative); PH 5.5 (5.0-9.0); Specific Gravity - Urine >= 1.030 (1.005-1.025); UMIC TRIGGER UACC YES; Urine Blood Negative (Negative); Urine Ketones Trace mg/dL (Negative); Urine Protein 30 (1+) mg/dL (Neg-Trace)
[2022-02-11 08:31] LABS: UPreg QC Valid YES; Urine Pregnancy NEGATIVE (NEGATIVE)
[2022-02-11 08:35] LABS: Bacteria Urine None Seen (None Seen); Hyaline Casts Urine 0-2 /LPF (0-2); RBC Urine 0-2 /HPF (0-2); Squamous Epithelial Cell Urine 0-2 /HPF (0-2); WBC Urine 0-5 /HPF (0-5)
[2022-02-11 08:40] LABS: COVID-19 Test Negative (Negative); IDNOW Serial# 16C4AD1C
--- NOTE | 2022-02-11 09:29 | ED.ANXIETY ---
HPI - Anxiety General Chief Complaint: Anxiety Stated Complaint: body pain, anxiety Time Seen by Provider: 02/11/22 09:27 Source: patient Mode of arrival: ambulatory Limitations: no limitations History of Present Illness HPI narrative: 26 yo female presenting to the ER with post- anxiety. She delivered a premature baby in December who required a NICU stay for one month. Baby came home on January 07. She has been doing pretty well as a first time mom since her daughter came home. The last week or so her anxiety has significantly increased. She feels like she isn't doing enough for her daughter even though everyone is telling her she is. She brought her baby to the doctor yesterday for a well check and she was told she may be over feeding the baby with significant increases in her growth percentiles. Patient states she is anxious about small things. She is not eating well. She is sleeping ok and taking showers daily but still feels like she is not taking good care of herself. She denies any suicidality or thoughts of harming her baby. She used to have a therapist a long time ago but felt they did not have a good rapport. She has never been on medications for anxiety or depression before. MD complaint: anxiety Onset (ago): week(s) Severity: moderate Quality: constant Place: home History of similar episodes: Yes Provoking factors: emotional stress Relieving factors: nothing Exacerbating factors: nothing Associated symptoms: other (poor PO intake) Related Data Home Medications Medication Instructions Recorded Confirmed fluticasone propionate 50 1 spray intranasal DAILY 10/17/21 11/11/21 mcg/actuation nasal spray,suspension doxycycline monohydrate 100 mg 100 mg PO BID 01/19/22 tablet Previous Rx's Medication Instructions Recorded medroxyprogesterone 150 mg/mL 150 mg IM [id number] #1 mL 01/19/22 intramuscular suspension (Depo-Provera) Allergies Allergy/AdvReac Type Severity Reaction Status Date / Time penicillin V Allergy Unknown Unknown Verified 01/19/22 09:46 seasonal Allergy Unknown Unknown Uncoded 11/25/21 11:03 Review of Systems Review of Systems: Constitutional: No Fever, No Chills Cardiovascular: No Chest Pain, No SOB, Gastrointestinal: No Nausea, No Vomiting, No Diarrhea, No abdominal Pain Genitourinary: No Dysuria, No Urinary Frequency Musculoskeletal: No joint pain, No Myalgias Skin: No Skin Lesions, No rash Neuro: No Weakness, No Numbness, No Dizziness, No Headache Psych: + Anxiety/Panic, +Depression, No SI, No HI, No AH, No VH Heme/Lymph: No Bruising, No Lymphadenopathy PMFSH Past Medical History Medical History Hepatitis C antibody positive in blood Hx of hepatitis C Migraine Surgical History Hx of wisdom tooth extraction Family History Family History Mother H/O pre-eclampsia Hypertension Diabetes mellitus H/O blood clots Sister Gestational diabetes Kidney stones Maternal Grandmother Lung cancer Father Past heart attack Social History Social History (Updated 01/19/22 @ 12:42 by Cait Chen) Household Members: Family Housing: Apartment Are you a primary assistant child care teacher to a significant other at home: No Do you presently have visiting nurse or other home services: No Alcohol intake: former Patient Tobacco Use Status: Former Tobacco user e-Cigarette/Vaping Use: Former Use Substance Use Type: Marijuana Agree to transfusion: No Advance Directives: No Advance Directives Information Provided: Yes service: No Current occupational status: previously employed Current occupational exposures/hazards: No Physical Exam Vital Signs: Vital Signs: Last Vital Signs Temp 97.8 F 02/11/22 08:10 Pulse 104 H 02/11/22 08:10 Resp 17 02/11/22 08:10 BP 124/78 02/11/22 08:10 Pulse Ox 96 02/11/22 08:10 O2 Del Method 02/11/22 08:10 BMI result Body Mass Index 25.0 Appearance: Alert. Oriented X3. No acute distress. HEENT: normal external inspection Neck: Normal inspection. Neck supple. CVS: Normal heart rate and rhythm. Pulses normal. Respiratory: No respiratory distress. Breath sounds normal. Abdomen: Soft and nontender. +BS x4 Skin: Skin warm and dry. Normal skin color. Normal skin turgor. No rashes. Extremities: No lower extremity edema. Neuro/psych: Oriented X 3. No motor deficit. No sensory deficit. Steady gait. Makes eye contact, engages well. tearful at times. anxious. not suicidal. good insight and judgment. Course Course Course Narrative: 26-year-old her time mom presented to the ER with anxiety and depression. She has good insight and judgment and is seeking help. She is not suicidal or have any thoughts of harming her baby. She has a good support system in the community. She is not on medications or seen a therapist. She would like to get resources from our care team. Consult has been placed. Reevaluation(s) Reevaluation #1: Care team members spent time with the patient and provided multiple resources to her. She feels good about her support and plans to follow up with the [facility], [facility] on Sunday. At this time comfortable with discharge home. She has a supportive partner and does not pose a risk to herself or her baby. She is stable for discharge home with family support. MDM - Anxiety Lab Data Labs: Lab Results 02/11/22 02/11/22 02/11/22 Range/Units 08:20 08:20 08:20 Urine Color Dark Yellow Urine Appearance Clear Urine pH 5.5 (5.0-9.0) Ur Specific [place] >= 1.030 H (1.005-1.025) Urine Protein 30 (1+) H (Neg-Trace) mg/dL Urine Glucose (UA) Negative (Negative) mg/dL Urine Ketones Trace (Negative) mg/dL Urine Blood Negative (Negative) Urine Nitrite Negative (Negative) Ur Leukocyte Esterase Negative (Negative) Urine RBC 0-2 (0-2) /HPF Urine WBC 0-5 (0-5) /HPF Ur Squamous Epith Cells 0-2 (0-2) /HPF Urine Bacteria None Seen (None Seen) Hyaline Casts 0-2 (0-2) /LPF Urine Test NEGATIVE (NEGATIVE) COVID-19 (MERYL) Negative (Negative) COVID-19 Clin Com See Note Critical Care Time Critical Care Time Critical Care Time: No Discharge Plan Discharge Clinical Impression: anxiety Patient Disposition: Home, Self-Care Instructions: Depression (DC), Anxiety (ED) Additional Instructions: Follow up with all of the resources provided to you Call your TRANSITION COACH on Sunday to be seen If you develop new or worsening symptoms call 911 or come back to the ER for further evaluation. Prescriptions: No Action fluticasone propionate 50 mcg/actuation spray,suspension 1 spray intranasal DAILY doxycycline monohydrate 100 mg tablet 100 mg PO BID medroxyprogesterone [Depo-Provera] 150 mg/mL suspension 150 mg IM [id number] Qty: 1 3RF Referrals: Federico Montanez MD [Physician] - ( anxiety/depression)
--- NOTE | 2022-02-11 10:35 | MHC.CARE ---
Consult was requested by SRIDHAR Miner as Patient was in ED due to anxiety related concerns due to Post . Pt most recently delivered her baby prematurely in December and had her 6 week post delivery appointment. Pt denies any SI or HI and states that she feels as though her anxiety is escalating to the point where she becomes paralyzed. Pt reports that she co partners well the father of her baby and that he has been a huge support. Previously, PT was engaged in therapeutic services however was having issues with her insurance and missed a few appointments which caused her to be terminated. PT is willing to re-engage in services as well as consider medication to help assist with her current anxiety level. Care team SW provided resources for [facility] Centers (both in [place] and [place]), therapeutic information for both [facility] and [facility] and Post Support helpline. Pt was receptive and willing for the assistance and would be willing to follow up. Care team SW spoke SRIDHAR Miner regarding PT and information provided. Her recommendation as well was to have Pt follw up with her OBGYN on Sunday to discuss her options for medication as. Care team will make referral for PT for [facility].
== END 2022-02-11 11:00 | disposition home or self-care (01) ==
PROVIDERS: Emergency Provider Emergency Medicine; PCP Pediatrics
DX: O99.345 Other mental disorders complicating the puerperium (principal); F41.9 Anxiety disorder, unspecified; Z20.822 Contact with and (suspected) exposure to COVID-19
CPT/HCPCS: 81001; 81025; 87635; 99282; 99283

== ENCOUNTER → 2022-03-08 08:50 | Outpatient (BNVA) | payer MEDICAID, SELFPAY | PROVIDERS: PCP Pediatrics; Visit Provider Advanced Practice Midwife | DX: Z30.42 Encounter for surveillance of injectable contraceptive (principal) | CPT/HCPCS: 96372; 99211 ==

== ENCOUNTER 2022-05-03 09:17 | Emergency (ER) | payer MEDICAID, SELFPAY ==
--- NOTE | ~2022-05-03 | XR_ITS ---
EXAMINATION: XR CHEST CLINICAL INFORMATION: Shortness of breath COMPARISON: None TECHNIQUE: 2 views of the chest were obtained. FINDINGS: No significant abnormality is noted involving the heart, lungs, mediastinum, bony thorax or soft tissues. XR/XR chest 2V IMPRESSION: Unremarkable examination.
[2022-05-03 09:19] VITALS: BP 132/92; PULSE 116; RESP 18; TEMP 37.1; O2SAT 97; BMI 26.6
--- NOTE | 2022-05-03 09:31 | ED.GENADULT ---
HPI - General Adult General Chief complaint: Upper Respiratory Symptoms Stated complaint: CP, hard to breathe, headache Time Seen by Provider: 05/03/22 09:27 Source: patient Mode of arrival: ambulatory Limitations: no limitations History of Present Illness HPI narrative: Patient is a 26 year old assigned female at with a history of hepatitis C presenting to the emergency department today with a cough and body aches. Patient states that for the last couple of days she has had a cough and body aches. Patient denies any dizziness, lightheadedness, abdominal pain, nausea, vomiting, fever, chills, blurry vision, double vision, loss of vision, chest pain, difficulty breathing, shortness of breath, back pain, night sweats, pain with urination, increased urinary frequency, increased urinary urgency, blood in her urine or stool, syncope or a near syncopal episode, recent trauma or falls, bowel incontinence, bladder incontinence, bowel retention, bladder retention, or any other complaints at this time. Onset (ago): day(s) (2) Severity: mild Severity scale (1-10): 3 Relieving factors: none Exacerbating factors: none Associated symptoms: cough Treatments prior to arrival: none Related Data Home Medications Medication Instructions Recorded Confirmed fluticasone propionate 50 1 spray intranasal DAILY 10/17/21 11/11/21 mcg/actuation nasal spray,suspension doxycycline monohydrate 100 mg 100 mg PO BID 01/19/22 tablet Previous Rx's Medication Instructions Recorded medroxyprogesterone 150 mg/mL 150 mg IM [id number] #1 mL 01/19/22 intramuscular suspension (Depo-Provera) benzonatate 100 mg capsule 100 mg PO BID PRN cough 7 days #14 05/03/22 caps Allergies Allergy/AdvReac Type Severity Reaction Status Date / Time penicillin V Allergy Unknown Unknown Verified 01/19/22 09:46 seasonal Allergy Unknown Unknown Uncoded 11/25/21 11:03 Review of Systems Constitutional: Constitutional: Reports no additional constitutional complaints, Reports body ache(s), Denies chills, Denies fever(s) and Denies night sweats Eyes: Eyes: Reports no additional eye complaints, Denies blurry vision, Denies change in vision, Denies diplopia, Denies eye discharge, Denies loss of vision and Denies eye pain ENT: Denies dizziness Cardiovascular: Cardiovascular: Reports no additional cardiovascular complaints, Denies chest pain, Denies lightheadedness, Denies Loss of Consciousness and Denies dyspnea Respiratory: Respiratory: Reports no additional respiratory complaints, Reports cough and Denies dyspnea Gastrointestinal: Gastrointestinal: Reports no additional gastrointestinal complaints, Denies abdominal pain, Denies melena, Denies hematochezia, Denies change in bowel habits and Denies change in stool character Genitourinary: Genitourinary: Denies hematuria, Denies urinary frequency, Denies dysuria, Denies urinary incontinence, Denies urinary hesitancy and Denies urinary urgency Musculoskeletal: Musculoskeletal: Reports no additional musculoskeletal complaints, Denies numbness and Denies tingling Neurologic: Denies dizziness, Denies loss of vision, Denies numbness and Denies tingling Psychiatric: Psychiatric: Reports no additional psychiatric complaints Endocrine: Endocrine: Reports no additional endocrine complaints Hematologic/Lymphatic: Hematologic/Lymphatic: Reports no additional hematologic/lymphatic complaints Allergic/Immunologic: Allergic/Immunologic: Reports no additional allergic/immunologic complaints PMFSH Past Medical History Attestation statement: The following information was validated with the patient. Source: old records reviewed and nursing notes reviewed Medical History Hepatitis C antibody positive in blood Hx of hepatitis C Migraine Surgical History Hx of wisdom tooth extraction Family History Family History Mother H/O pre-eclampsia Hypertension Diabetes mellitus H/O blood clots Sister Gestational diabetes Kidney stones Maternal Grandmother Lung cancer Father Past heart attack Social History Social History Household Members: Family Housing: Apartment Are you a primary career and guidance counselor to a significant other at home: No Do you presently have visiting nurse or other home services: No Alcohol intake: former Patient Tobacco Use Status: Former Tobacco user e-Cigarette/Vaping Use: Former Use Substance Use Type: Marijuana Agree to transfusion: No Advance Directives: No Advance Directives Information Provided: No service: No Current occupational status: previously employed Current occupational exposures/hazards: No Physical Exam ED Vital Signs: Vital Signs - 24 hr 05/03/22 09:19 Temperature 98.7 F Pulse Rate 116 H Respiratory Rate 18 Blood Pressure 132/92 H Pulse Oximetry 97 Oxygen Delivery Method Room Air BMI result Body Mass Index 26.6 Const General: cooperative, no acute distress, alert and awake Nutritional Appearance: well nourished Orientation/consciousness: patient oriented x3 Limitations: no limitations HENMT Head: Yes normal to inspection and Yes atraumatic Ears: hearing grossly normal bilaterally and external ears normal General nose exam: Normal external nose present, no nasal discharge noted and no epistaxis Face and sinus: Yes normal facial exam, No abrasion and No laceration Mouth: Normal oral and palatal mucosa present, no drooling and no muffled voice Eyes General: appearance normal, both eyes and all related structures Periorbital: periorbital findings normal Eyelids: Yes eyelids normal Conjunctivae: conjunctivae normal Pupils: Equal, round and reactive pupils present EOM: EOMs intact bilaterally Neck Neck: Yes normal visual inspection, Yes full ROM and Yes no lymphadenopathy Chest Chest palpation & inspection: normal inspection of the chest Resp Effort & Inspection: normal respiratory effort and able to speak in complete sentences Auscultation: clear to auscultation bilaterally Cardio Rate: regular rate Rhythm: regular rhythm GI Inspection: Yes normal to inspection Neuro General: patient oriented x3 and moves all extremities Cranial nerves: Yes Equal, round and reactive pupils present Cognition (Neuro): normal cognition Motor exam (neuro): 5/5 motor strength present throughout Sensory Exam: Normal double simultaneous stimulation for sensation Coordination: [id number] test normal Extrem General: Yes normal to inspection, Yes full ROM and Yes capillary refill normal Psych Appearance: grossly normal Mental Status: mental status grossly normal Affect: normal affect Attitude: cooperative Thought process: Normal thought process present Thought content: Normal thought content present Insight: Good insight present (Psych) Medications Administered Discontinued Medications Generic Name Dose Route Start Last Admin Trade Name Freq PRN Reason Stop Dose Admin Benzonatate 100 mg 05/03/22 09:59 05/03/22 10:20 Benzonatate 100 Mg Capsule PO 05/03/22 10:00 100 mg ONCE ONE Administration Ketorolac Tromethamine 15 mg 05/03/22 09:59 05/03/22 10:20 Ketorolac Tromethamine 15 Mg/Ml Vial IM 05/03/22 10:00 15 mg ONCE ONE Administration Medical Decision Making Medical Decision Making MDM Narrative: Patient is a 26 year old assigned female at with a history of Hepatitis C presenting to the emergency department today with a cough and body aches. Patient's physical exam was unremarkable. Patient's chest x-ray showed no acute process. Patient's influenza test was positive. I explained my physical exam findings as well as all test results to the patient. I answered all questions asked by the patient. Patient received PO Benzonatate and IM Toradol which she stated helped her symptoms significantly. I stressed the importance of the patient taking her medication as prescribed. I stressed the importance of the patient following up with her primary care provider. I stressed the importance of the patient returning to the emergency department immediately if her symptoms were to worsen or if she were to develop any dizziness, shortness of breath, difficulty breathing, chest pain, blurry vision, loss of vision, nausea, vomiting, abdominal pain, fever, chills, back pain, or any other complaints. Patient verbalized agreement and understanding with this treatment plan and discharge. Differential Diagnosis Differential Diagnoses: The differential diagnosis associated with the presentation includes URI, cough, influenza, RSV, COVID-19 Lab Data MDM Lab Attestation statement: I reviewed the patient's lab results. Labs: Lab Results 05/03/22 Range/Units 09:26 Influenza Type A (PCR) POSITIVE A (Negative) Influenza Type B (PCR) NEGATIVE (Negative) RSV RNA Qual (PCR) NEGATIVE (Negative) SARS-CoV-2 RNA (RT-PCR) NEGATIVE (Negative) Radiology Impression Discussion of test interpretation with radiology: I have reviewed the radiologist's reading. Radiologist Impression: My interpretation is in agreement with the radiologist's impression of the imaging studies. EXAMINATION: XR CHEST CLINICAL INFORMATION: Shortness of breath COMPARISON: None TECHNIQUE: 2 views of the chest were obtained. FINDINGS: No significant abnormality is noted involving the heart, lungs, mediastinum, bony thorax or soft tissues. XR/XR chest 2V IMPRESSION: Unremarkable examination. Dictated By: Margaret Hubbard MD Signed By: Electronically signed by Margaret Hubbard MD 05/03/22 1023 Discharge Plan Discharge Clinical Impression: Influenza Patient Disposition: Home, Self-Care Instructions: Influenza (ED) Additional Instructions: Follow up with your primary care provider. Return to the emergency department immediately if your symptoms worsen or if you develop any dizziness, shortness of breath, difficulty breathing, chest pain, blurry vision, loss of vision, nausea, vomiting, abdominal pain, fever, chills, back pain, or any other complaints. Prescriptions: New benzonatate 100 mg capsule 100 mg PO BID PRN (Reason: cough) 7 Days Qty: 14 0RF No Action fluticasone propionate 50 mcg/actuation spray,suspension 1 spray intranasal DAILY doxycycline monohydrate 100 mg tablet 100 mg PO BID medroxyprogesterone [Depo-Provera] 150 mg/mL suspension 150 mg IM [id number] Qty: 1 3RF Referrals: Sapna Davis MD [Primary Care Provider] - Stand Alone Forms: Work/School Release Interventions: ED Discharge Assessment Last Done: 05/03/22 10:28 Discharge Date/Time: 05/03/22 10:29 Print Language: [place]
[2022-05-03 10:15] LABS: Influenza A PCR POSITIVE (Negative); Influenza B PCR NEGATIVE (Negative); Resp Syncy Virus RNA Qual PCR NEGATIVE (Negative); SARS COV2 PCR INHOUSE NEGATIVE (Negative)
[2022-05-03] MEDS: Benzonatate 100 MG CAPSULE PO (10:20)
[2022-05-03] MEDS: Ketorolac Tromethamine 15 MG/ML VIAL IM (10:20)
== END 2022-05-03 10:29 | disposition home or self-care (01) ==
PROVIDERS: Emergency Provider Student in an Organized Health Care Education/Training Program; PCP Pediatrics
DX: R07.89 Other chest pain (principal); R05.9 Cough, unspecified; M79.10 Myalgia, unspecified site; Z20.822 Contact with and (suspected) exposure to COVID-19; Z79.899 Other long term (current) drug therapy
CPT/HCPCS: 0241U; 71046; 96372; 99283; 99284; J1885

== ENCOUNTER → 2022-05-15 13:16 | Outpatient (BNVA) | payer MEDICAID, SELFPAY | PROVIDERS: PCP Pediatrics; Visit Provider Advanced Practice Midwife | DX: Z30.09 Encounter for other general counseling and advice on contraception (principal) | CPT/HCPCS: 99212 ==

== ENCOUNTER 2022-06-07 10:01 | Outpatient (REF) | payer MEDICAID, SELFPAY | END 2022-06-07 10:02 | disposition home or self-care (01) | LOC: HO.LNP 10:01 | PROVIDERS: PCP Pediatrics; Visit Provider Advanced Practice Midwife | DX: N76.0 Acute vaginitis (principal) | CPT/HCPCS: 0353U; 87480; 87510; 87660; 99212 ==

== ENCOUNTER 2022-06-07 10:56 | Outpatient (REF) | payer MEDICAID, SELFPAY ==
[2022-06-07 16:43] LABS: CT PCR NOT DETECTED (Not Detect.); NG PCR NOT DETECTED (Not Detect.)
[2022-06-08 12:41] LABS: BV Int Neg Control Negative (Negative); BV Int Pos Control Positive (Positive)
== END 2022-06-07 10:57 | disposition home or self-care (01) ==
LOC: HO.LAB 10:56
PROVIDERS: Visit Provider Advanced Practice Midwife
DX: Z11.3 Encounter for screening for infections with a predominantly sexual mode of transmission (principal); N76.0 Acute vaginitis
CPT/HCPCS: 0353U; 87480; 87510; 87660

== ENCOUNTER 2022-07-02 08:30 | Emergency (ER) | payer MEDICAID, SELFPAY ==
[2022-07-02 08:38] VITALS: BP 140/68; PULSE 90; RESP 18; TEMP 36.8; O2SAT 96; BMI 26.9
--- NOTE | 2022-07-02 09:06 | ED.DENTAL ---
HPI - Dental/Oral General Chief complaint: Dental/Oral Stated complaint: Dental pain Time Seen by Provider: 07/02/22 09:05 Source: patient Mode of arrival: ambulatory Limitations: no limitations History of Present Illness HPI Narrative: Poor dental care with increased pain Complaint: tooth pain Onset (ago): week(s) Duration: constant Severity: mild Relieving factors: nothing Context: history of dental caries and poor dental care Related Data Home Medications Medication Instructions Recorded Confirmed fluticasone propionate 50 1 spray intranasal DAILY 10/17/21 11/11/21 mcg/actuation nasal spray,suspension hydroxyzine HCl 25 mg tablet 25 mg PO QID PRN anxiety 06/07/22 Previous Rx's Medication Instructions Recorded medroxyprogesterone 150 mg/mL 150 mg IM [id number] #1 mL 01/19/22 intramuscular suspension (Depo-Provera) clindamycin HCl 300 mg capsule 300 mg PO TID #21 caps 07/02/22 naproxen 500 mg tablet (Naprosyn) 500 mg PO BID #20 tabs 07/02/22 Allergies Allergy/AdvReac Type Severity Reaction Status Date / Time penicillin V Allergy Unknown Swelling Verified 07/02/22 09:48 seasonal Allergy Unknown Unknown Uncoded 06/07/22 10:29 Review of Systems Review of Systems: Yes all other systems are reviewed and are negative ENT: Comments: broken teeth Neurologic: Denies Sensory deficit (Neuro) COUNTS INCLUDE 234 BEDS AT THE [facility] Past Medical History Medical History Hepatitis C antibody positive in blood Hx of hepatitis C Migraine Surgical History Hx of wisdom tooth extraction Family History Family History Mother H/O pre-eclampsia Hypertension Diabetes mellitus H/O blood clots Sister Gestational diabetes Kidney stones Maternal Grandmother Lung cancer Father Past heart attack Social History Social History Household Members: Family Housing: Apartment Are you a primary home care companion to a significant other at home: No Do you presently have visiting nurse or other home services: No Alcohol intake: former Patient Tobacco Use Status: Former Tobacco user e-Cigarette/Vaping Use: Former Use Substance Use Type: Marijuana Agree to transfusion: No Advance Directives: No Advance Directives Information Provided: Yes service: No Current occupational status: previously employed Current occupational exposures/hazards: No Physical Exam Vital Signs: Vital Signs: Last Vital Signs Temp 98.2 F 07/02/22 08:38 Pulse 90 07/02/22 08:38 Resp 18 07/02/22 08:38 BP 140/68 H 07/02/22 08:38 Pulse Ox 96 07/02/22 08:38 O2 Del Method 07/02/22 08:38 BMI result Body Mass Index 26.9 Const: Other: female looking older than stated age Nutritional Appearance: average body habitus Orientation/consciousness: oriented to person and patient oriented x3 Limitations: no limitations HEENT: Head: Yes normal to inspection Ears: external ears normal General nose exam: Normal external nose present Teeth and gingiva: other (diffusely rotten teeth ) Throat: Yes posterior oropharynx normal Eyes: General: appearance normal, both eyes and all related structures Neck: Other: supple Neck: Yes normal visual inspection Chest: Chest palpation & inspection: normal inspection of the chest Resp: Auscultation: clear to auscultation bilaterally Cardio: Jugular venous distension: no JVD Rate: regular rate Rhythm: regular rhythm Heart sounds: S1 normal heart sound present and S2 normal heart sound present GI: Inspection: Yes normal to inspection Palpation (GI): Soft to palpation, nontender and No hepatosplenomegaly present Auscultation: normal bowel sounds : General: Yes no CVA tenderness Back/Spine/Pelvis: Back: no CVA tenderness Skin: General skin exam: no rashes or lesions noted Neuro: General: oriented to person and patient oriented x3 Cranial nerves: Yes CN's II-XII intact bilaterally Motor exam (neuro): 5/5 motor strength present throughout Sensory Exam: No Sensory deficit (Neuro) Extrem: General: Yes normal to inspection Psych: Appearance: grossly normal Course Reevaluation(s) Reevaluation #1: Will treat with NSAIDs and amoxicillin Time: 09:17 Medications Administered Discontinued Medications Generic Name Dose Route Start Last Admin Trade Name Freq PRN Reason Stop Dose Admin Clindamycin HCl 300 mg 07/02/22 09:37 07/02/22 09:41 Clindamycin Hcl 300 Mg Capsule PO 07/02/22 09:38 300 mg ONCE ONE Administration Ketorolac Tromethamine 60 mg 07/02/22 09:18 07/02/22 09:41 Ketorolac Tromethamine 60 Mg/2 Ml Vial IM 07/02/22 09:19 60 mg ONCE ONE Administration Medical Decision Making Differential Diagnosis Differential Diagnoses: The differential diagnosis associated with the presentation includes (dental caries, dental infection, dental abscess) Tests considered The following testing was considered but not selected: xrays were considered but with no swelling or erythema no imaging was done Discharge Plan Discharge Clinical Impression: Chronic dental infection, Dental infection Patient Disposition: Home, Self-Care Instructions: Dental Abscess (ED) Prescriptions: New naproxen [Naprosyn] 500 mg tablet 500 mg PO BID Qty: 20 0RF clindamycin HCl 300 mg capsule 300 mg PO TID Qty: 21 0RF No Action fluticasone propionate 50 mcg/actuation spray,suspension 1 spray intranasal DAILY medroxyprogesterone [Depo-Provera] 150 mg/mL suspension 150 mg IM [id number] Qty: 1 3RF hydroxyzine HCl 25 mg tablet 25 mg PO QID PRN (Reason: anxiety) Referrals: Sapna Davis MD [Primary Care Provider] - 5 days Interventions: ED Discharge Assessment Last Done: 07/02/22 09:47 Discharge Date/Time: 07/02/22 09:49
[2022-07-02] MEDS: Clindamycin HCL 300 MG CAPSULE PO (09:41)
[2022-07-02] MEDS: Ketorolac Tromethamine 60 MG/2 ML VIAL IM (09:41)
== END 2022-07-02 09:49 | disposition home or self-care (01) ==
PROVIDERS: Emergency Provider Emergency Medicine; PCP Pediatrics
DX: K04.7 Periapical abscess without sinus (principal); Z87.891 Personal history of nicotine dependence; Z79.899 Other long term (current) drug therapy
CPT/HCPCS: 96372; 99283; 99284; J1885

== ENCOUNTER → 2022-07-25 10:12 | Outpatient (BNVA) | payer MEDICAID, SELFPAY | PROVIDERS: PCP Pediatrics; Visit Provider Advanced Practice Midwife | DX: Z30.017 Encounter for initial prescription of implantable subdermal contraceptive (principal) | CPT/HCPCS: 11981; 58300; 81025; J7307 ==

== ENCOUNTER 2023-12-03 09:21 | Outpatient (REF) | payer MEDICAID, SELFPAY ==
[2023-12-03 14:24] LABS: MANUAL DIFF FLAG NO
[2023-12-03 14:30] LABS: Basophils Absolute Auto 0.1 X10*3/uL (0.0-0.2); Basophils Percent Auto 0.8 % (0-2); Eosinophils Absolute Auto 0.2 X10*3/uL (0.0-0.4); Eosinophils Percent Auto 2.9 % (0-4); Hematocrit 40.4 % (37.0-47.0); Hemoglobin 13.5 g/dl (12.0-16.0); Imm Gran Abs Auto 0.01 X10*3/uL (0.00-0.03); Imm Gran Pct Auto 0.2 % (0.0-0.4); Lymphocytes Absolute Auto 2.6 X10*3/uL (1.2-4.9); Lymphocytes Percent Auto 41.7 % (20-40); Mean Corpuscular HGB Conc 33.4 g/dl (31.0-35.0); Mean Corpuscular Hemoglobin 30.2 pg (27.0-33.0); Mean Corpuscular Volume 90.4 fL (80.0-98.0); Mean Platelet Volume 10.8 fL (9.4-12.3); Monocytes Absolute Auto 0.4 X10*3/uL (0.1-1.2); Monocytes Percent Auto 5.6 % (2-11); Neutrophils Absolute Auto 3.1 x10*3/uL (2.0-8.3); Neutrophils Percent Auto 48.8 % (45-73); Platelet Count 240 X10*3/uL (160-400); Red Blood Count 4.47 X10*6/uL (4.20-5.50); Red Cell Distribution Width 13.2 % (11.0-16.0); White Blood Count 6.2 X10*3/uL (4.8-10.8)
[2023-12-03 15:27] LABS: Vitamin B12 518 pg/mL (200-900)
== END 2023-12-03 09:22 | disposition home or self-care (01) ==
LOC: HO.CHCLDS 09:21
PROVIDERS: Visit Provider Internal Medicine
DX: R20.2 Paresthesia of skin (principal); F41.9 Anxiety disorder, unspecified
CPT/HCPCS: 36415; 82607; 82746; 85025

== ENCOUNTER 2023-12-07 09:16 | Outpatient (REF) | payer MEDICAID, SELFPAY ==
--- NOTE | ~2023-12-07 | XR_ITS ---
EXAMINATION: CERVICAL SPINE 3 VIEWS CLINICAL INFORMATION: Neck pain. COMPARISON: None. TECHNIQUE: Frontal, lateral and odontoid views are obtained. FINDINGS: Vertebral body heights and alignment are normal. The disc spaces are well-maintained. No acute fracture or spondylolisthesis is seen. The dens and C7-T1 interface are normal. The posterior elements are intact. There is no prevertebral soft tissue swelling. XR/XR cervical spine 3V IMPRESSION: Negative examination. Electronically signed by: Rene Ferguson MD 12/31/2023 07:24 PM EDT
== END 2023-12-07 09:17 | disposition home or self-care (01) ==
LOC: HO.XRAY 09:16
PROVIDERS: PCP Pediatrics; Visit Provider Internal Medicine
DX: M54.2 Cervicalgia (principal)
CPT/HCPCS: 72040

== ENCOUNTER 2024-05-15 09:30 | Outpatient (REF) | payer MEDICAID, SELFPAY ==
--- NOTE | ~2024-05-15 | XR_ITS ---
EXAMINATION: XR CERVICAL SPINE CLINICAL INFORMATION: chronic neck pain COMPARISON: December 07, 2023 TECHNIQUE: 5 views of the cervical spine, inclusive of flexion and extension views, were obtained. FINDINGS: The bone mineralization is normal. Disc space heights are preserved. Alignment maintained. Limited visualization of C7 due to overlying bony and soft tissue structures. XR/XR cervical spine 4V IMPRESSION: Unremarkable exam. Electronically signed by: Nafisa Lara MD 05/19/2024 10:40 AM DENNIS
== END 2024-05-15 09:31 | disposition home or self-care (01) ==
LOC: HO.XRAY 09:30
PROVIDERS: PCP Pediatrics; Visit Provider Pediatrics
DX: M54.2 Cervicalgia (principal)
CPT/HCPCS: 72050

== ENCOUNTER → 2024-06-02 17:45 | Outpatient (BNV) | payer MEDICAID, SELFPAY | PROVIDERS: PCP Pediatrics; Visit Provider Radiology Diagnostic Radiology | DX: M54.2 Cervicalgia (principal); R53.1 Weakness | CPT/HCPCS: 72141 ==

== ENCOUNTER 2024-06-02 17:46 | Outpatient (REF) | payer MEDICAID, SELFPAY ==
--- NOTE | ~2024-06-02 | MR_ITS ---
EXAMINATION: MR CERVICAL SPINE WITHOUT CONTRAST CLINICAL INFORMATION: Chronic neck pain . Weakness and arms. COMPARISON: None available. TECHNIQUE: MRI of the cervical spine was obtained using routine sequences without contrast. FINDINGS: There is normal cervical lordosis. The vertebral heights, alignment and disc heights are normal. The disc signal is preserved. There is no evidence of disc bulge, herniation or spinal canal stenosis at any of the disc levels. The neural foramina are patent bilaterally. There is a punctate T2 signal abnormality in the central spinal cord posterior to C2-3 disc level measuring 5 mm on the sagittal STIR image suspicious for tiny syrinx or cysts. Rest of the cord signal is normal. There is inferior migration of cerebellar tonsils through the foramen magnum measuring at least 6 mm below the foramen magnum level/Natasha line. The bone marrow signal and paravertebral soft tissues are normal. 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 In addition is a punctate T2 signal in the central canal on STIR as well as T2 sequences suspicious for small syrinx. Differential diagnosis may include a demyelinating plaque. There is no evidence of disc bulge, herniation or spinal canal stenosis at any of the disc levels. Recommend correlation with old MRI exams if available. Electronically signed by: Blayne Stewart MD 06/03/2024 07:54 AM DENNIS
--- OUTSIDE RECORDS SUMMARY | 2024-06-02 20:09 | XMS_ITS | Encounter Summary ---
Author Organization [employer] Address [address] [place] [address] [address] [place] [address] Care Team Providers Care Livestock Farmworker Name Role Phone Figueroa Kramer MD Primary Care Prov ider Encounter Details Date Type Department Care Team ([facility] Contact Info) Description 05/09/2024 Orders Only [facility] PEDS [address] [place], [place] [phone] Sapna Davis MD [address] [place] [address] Neck pain (Primary Dx) Social History Tobacco Use Types Packs/Day Years Used Date Smoking Tobacco: Every Day Pipe Passive Smoke Exposure: Past Comments:Vape occasionally : daily. Depression Answer Date Recorded Patient Health Questionnaire-9 Score 13 12/07/2023 Patient Health Questionnaire-9 Score 13 12/07/2023 Last PHQ-9: Questionnaire Data Not on file 0 12/07/2023 Depression Answer Date Recorded Patient Health Questionnaire-2 Score 4 12/07/2023 Comments Unknown Sex and Gender Information Value Date Recorded Sex Assigned at Female 03/06/2022 10:18 AM EDT Legal Sex Female 10:18 AM EDT Gender Identity Female 03/06/2022 10:18 AM EDT Sexual Orientation Straight 03/06/2022 10 :18 AM EDT documented as of this encounter Plan of Treatment Not on file documented as of this encounter Procedures Procedure Name Priority Date/Time Associated Diagnosis Comments XR CERVICAL SPINE 4V Routine 05/15/2024 9:36 AM EST Neck pain documented in this encounter Results * XR CERVICAL SPINE 4V (05/15/2024 9:36 AM EST) Anatomical Region Laterality Modality Abdomen Radiographic Ivania ging 05/15/2024 9:36 AM EST Narrative 05/19/2024 10:43 AM EST ? [facility] ?[address] ?[place] [address] ?XRay Report ? Signed ? Patient: Vandana Durant ?MR#: [id number] ?? [id number] ? : 1995 ?Acct:[id number] ? Age/Sex: 28 / F ?ADM Date: 05/15/24 ? Loc: HO.XRAY ? Attending Dr: Sapna Davis MD ? Ordering Physician: Sapna Davis MD ?? Date of Service: 05/15/24 ?? Procedure(s): XR cervical spine 4V ?? Accession Number(s): [id number] ? cc: Sapna Davis MD ? EXAMINATION: ?? XR CERVICAL SPINE ? CLINICAL INFORMATION: ?? chronic neck pain ? COMPARISON: ?? December 07, 2023 ? TECHNIQUE: ?? 5 views of the cervical spine, inclusive of flexion and extension ?? views, were obtained. ? FINDINGS: ?? The bone mineralization is normal. Disc space heights are preserved. ?? Alignment maintained. Limited visualization of C7 due to overlying bony ?? and soft tissue structures. ? XR/XR cervical spine 4V ?? IMPRESSION: ?? Unremarkable exam. ? Electronically signed by: ??Nafisa Lara MD ??05/19/2024 10:40 AM EST ? Dictated By: ?Nafisa Lara MD ? Signed By: ?<Electronically signed by Nafisa Lara MD in OV> ? 05/19/24 1040 ? DD/ 0936 ? TD/TT: 05/15/24 1022 ? Australian Rules Footballer: ? Procedure Note Krystyna Simpson - 05/19/[address] [address] XRay Report Signed Patient: Vandana Durant#: [id number] : 1995Acct:[id number] Age/Sex: 28 / FADM Date: 05/15/24 Loc: HO.XRAY Attending Dr: Sapna Davis MD Ordering Physician: Sapna Davis MD Date of Service: 05/15/24 Procedure(s): XR cervical spine 4V Accession Number(s): [id number] cc: Sapna Davis MD EXAMINATION: XR CERVICAL SPINE CLINICAL INFORMATION: chronic neck pain COMPARISON: December 07, 2023 TECHNIQUE: 5 views of the cervical spine, inclusive of flexion and extension views, were obtained. FINDINGS: The bone mineralization is normal. Disc space heights are preserved. Alignment maintained. Limited visualization of C7 due to overlying bony and soft tissue structures. XR/XR cervical spine 4V IMPRESSION: Unremarkable exam. Electronically signed by: Nafisa Lara MD 05/19/2024 10:40 AM EST Dictated By: Nafisa Lara MD Signed By: <Electronically signed by Nafisa Lara MD in OV> 05/19/24 1040 DD/ 0936 TD/TT: 05/15/24 1022 Australian Rules Footballer: Sapna Davis MD IMG XR PROCEDURES Edited Resu lt - Final documented in this encounter Visit Diagnoses Diagnosis Neck pain- Primary Cervicalgia documented in this encounter Additional Health Concerns Assessment Noted Time PHQ-9 Depression Total Score: 13 024 12:09 PM EDT documented as of this encounter Care Teams Livestock Farmworker Relationship Specialty Start Date End Date Figueroa Kramer MD [address] [place] [id number] PCP - General Internal Medicine 04/15/21 documented as of this encounter
--- OUTSIDE RECORDS SUMMARY | 2024-06-02 20:09 | XMS_ITS | Encounter Summary ---
Author Organization [employer] Address [address] [address] Care Team Providers Care Physicist Solid State Name Role Phone Figueroa Kramer MD Primary Care Prov ider Reason for Visit * Reason Onset Date Comments switch pcp 05/23/2024 Encounter Details Date Type Department Care Team ([facility] Contact Info) Description 05/23/2024 Telephone [facility] [address] [place] [address] Figueroa Kramer MD [address] [place] [address] switch pcp Social History Tobacco Use Types Packs/Day Years [...] AM EDT documented as of this encounter Miscellaneous Notes * Telephone Encounter - Cari Vizcarra RN - 05/27/2024 9:24 AM EST Chart Update- pt is and has been a Dr Kearns patient since 2019. Pt has seen several other [facility] providers over the years. This request cannot be granted. Spoke to PCP to have pt scheduled for televisit today to discuss previous message re: xray results. * Telephone Encounter - Michael Cardozo - 05/23/2024 4:47 PM EST TC from pt states unclear why we have Dr kearns as her pcp when her Dr is Dr ortiz . Pt wouldlike to be re-assigned to dr ortiz documented in this encounter Plan of Treatment Not on file documented as of this encounter Visit Diagnoses Not on filedocumented in this encounter Additional Health Concerns Assessment Noted Time PHQ-9 Depression Total Score: 13 024 12:09 PM EDT documented as of this encounter Care Teams Physicist Solid State Relationship Specialty Start Date End Date Figueroa Kramer MD [address] [place] [address] PCP - General Internal Medicine 04/15/21 documented as of this encounter
--- OUTSIDE RECORDS SUMMARY | 2024-06-02 20:09 | XMS_ITS | Encounter Summary ---
Author Organization [employer] Address [address] [address] Care Team Providers Care Bank Vault Clerk Name Role Phone Figueroa Kramer MD Primary Care Prov ider Reason for Visit * Reason Comments Med Refill Encounter Details Date Type Department Care Team ([facility] Contact Info) Description 05/15/2024 Refill [facility] [address] [place] [address] Figueroa Kramer MD [address] [place], [place] [phone] Social History Tobacco Use Types Packs/Day Years [...] documented as of this encounter Care Teams Bank Vault Clerk Relationship Specialty Start Date End Date Figueroa Kramer MD [address] [place] [id number] PCP - General Internal Medicine 04/15/21 documented as of this encounter
--- OUTSIDE RECORDS SUMMARY | 2024-06-02 20:09 | XMS_ITS | Encounter Summary ---
Author Organization [employer] Address 75 [facility] [address], [place] [address] Care Team Providers Care Tack Cutter Name Role Phone Figueroa Kramer MD Primary Care Prov ider Encounter Details Date Type Department Care Team (Latest Contact Info) Description 05/28/2024 Travel Social History Tobacco Use Types Packs/Day Years [...] documented as of this encounter Care Teams Tack Cutter Relationship Specialty Start Date End Date Figueroa Kramer MD [address] [facility] [place] [phone] PCP - General Internal Medicine 04/15/21 documented as of this encounter
--- OUTSIDE RECORDS SUMMARY | 2024-06-02 20:09 | XMS_ITS | Encounter Summary ---
Author Organization [employer] Address 75 [facility] [address] [place] [address] Care Team Providers Care Actuarial Trainee Name Role Phone Figueroa Kramer MD Primary Care Prov ider Reason for Visit * Reason Onset Date Comments Request for neck X Ray and chiro referral 2024 Encounter Details Date Type Department Care Team ([facility] Contact Info) Description 05/09/2024 Telephone [facility] [address] [place] [address] Jessi Gregg RN Request for neck X Ray and chiro referral Social History Tobacco Use Types Packs/Day Years [...] encounter Miscellaneous Notes * Telephone Encounter - Jessi Gregg RN - 05/09/2024 10:03 AM EST Multiple messages from pt for Xray order and chiro referral r/t neck pain. Messages sent to provider Dr Kearns for F/U. Shantelle Kwon, RN to Figueroa Justin MD 04/23/24 10:49 AM Pt seen on 04/17/24 and is requesting Chiro referral and imaging order for pt neck and pack pain discussed in last visit. Mojgan Falk 05/01/24 10:44 AM Tc from pt requesting status on XRAY order. Pt stated is still having severe pain. Please contact at [phone] Rudolph Freeman Telephone Encounter 05/09/23 Tc from pt requesting status on referral for a chiropractic & X-Ray for neck as pt currently still on pain and can't barely move. documented in this encounter Plan of Treatment Not on file documented as of this encounter Visit Diagnoses Not on filedocumented in this encounter Additional Health Concerns Assessment Noted Time PHQ-9 Depression Total Score: 13 024 12:09 PM EDT documented as of this encounter Care Teams Actuarial Trainee Relationship Specialty Start Date End Date Figueroa Kramer MD [address] [place] [id number] PCP - General Internal Medicine 04/15/21 documented as of this encounter
--- OUTSIDE RECORDS SUMMARY | 2024-06-02 20:09 | XMS_ITS | Encounter Summary ---
Author Organization [employer] Address 75 [facility] [address] [place] [address] Care Team Providers Care Rotary Soil Stabilizer Name Role Phone Figueroa Kramer MD Primary Care Prov ider Encounter Details Date Type Department Care Team ([facility] Contact Info) Description 05/28/2024 8:45 AM EST Telemedicine [facility] PEDS [address] [place] [address] Figueroa Kramer MD [address] [place] [address] Cervical pain (Primary Dx); Neck pain Social History Tobacco Use Types Packs/Day Years [...] AM EDT documented as of this encounter Progress Notes * Figueroa Justin MD - 05/28/2024 8:45 AM EST Subjective Patient ID: Vandana Durant is a 28 y.o. female who presents for No chief complaint on file.. Neck Pain This is a chronic problem. The pain is at a severity of 5/10. The symptoms are aggravated by position. Associated symptoms include headaches. Pertinent negatives include no fever, numbness, paresis, tingling, visual change or weakness. Review of Systems Constitutional: Negative for fever. Musculoskeletal: Positive for neck pain. Neurological: Positive for headaches. Negative for tingling, weakness and numbness. Objective Physical Exam Neurological: General: No focal deficit present. Mental Status: She is oriented to person, place, and time. Psychiatric: Mood and Affect: Mood normal. Behavior: Behavior normal. Assessment/Plan Problem List Items Addressed This Visit Neck pain Discussed xray results with patient, will prescribe short course of tramadol/prednisone, has appointment for chiropractor this Sunday, call back if not improving Relevant Medications traMADol (Ultram) 50 MG tablet predniSONE (Deltasone) 20 MG tablet Other Visit Diagnoses Cervical pain - Primary documented in this encounter Plan of Treatment Not on file documented as of this encounter Visit Diagnoses Diagnosis Cervical pain- Primary Cervicalgia Neck pain Cervicalgia documented in this encounter Additional Health Concerns Assessment Noted Time PHQ-9 Depression Total Score: 13 024 12:09 PM EDT documented as of this encounter Care Teams Rotary Soil Stabilizer Relationship Specialty Start Date End Date Figueroa Kramer MD [address] [place] [address] PCP - General Internal Medicine 04/15/21 documented as of this encounter
--- OUTSIDE RECORDS SUMMARY | 2024-06-02 20:09 | XMS_ITS | Encounter Summary ---
Author Organization [employer] Address [address] [place] [address] Care Team Providers Care Litigation Secretary Name Role Phone Figueroa Kramer MD Primary Care Prov ider Reason for Referral * Consultation (Routine) - Closed Specialty Diagnoses / Procedures Referred By Contact Referred To Contact Chiropractic Medicine Diagnoses Cervical pain Figueroa Kramer MD [address] [place] [address] Phone: tel: fax: [facility] [address] [place] [address] Phone: tel: fax: Referral ID Status Reason Start Date Expiration Date V isits Requested Visits Authorized [id number] Closed Specialty Services Required 05/25/2024 05/25/2025 1 1 Encounter Details Date Type Department Care Team (Late st Contact Info) Description 05/25/2024 Orders Only [facility] MED & PEDS [address] [place] [address] Figueroa Kramer MD [address] [place], [place] [phone] Cervical pain (Primary Dx) Social History Tobacco Use [...] as of this encounter Plan of Treatment Scheduled Referrals Name Type Priority Associated Diagnoses Order Schedule Referral to Chiropractic Outpatient Referral Routine Cervical pain Expected: 05/25/2024 (Approximate), Expires: 05/25/2025 documented as of this encounter Visit Diagnoses Diagnosis Cervical pain- Primary Cervicalgia documented in this encounter Additional Health Concerns Assessment Noted Time PHQ-9 Depression Total Score: 13 024 12:09 PM EDT documented as of this encounter Care Teams Litigation Secretary Relationship Specialty Start Date End Date Figueroa Kramer MD [address] [place] [phone] PCP - General Internal Medicine 04/15/21 documented as of this encounter
--- OUTSIDE RECORDS SUMMARY | 2024-06-02 20:09 | XMS_ITS | Encounter Summary ---
Author Organization [employer] Address [address] [place] [address] Care Team Providers Care Hotel Maid Name Role Phone Figueroa Kramer MD Primary Care Prov ider Encounter Details Date Type Department Care Team ([facility] Contact Info) Description 08/23/2022 Orders Only [facility] MED & PEDS [address] [place] [address] Figueroa Kramer MD [address] [place] [address] Social History Tobacco Use Types Packs/Day Years Used Date Smoking Tobacco: Never Assessed Comments Unknown Sex and Gender Information Value Date Recorded Sex Assigned at Female 03/06/2022 10:18 AM EDT Legal Sex Female 10:18 AM EDT Gender Identity Female 03/06/2022 10:18 AM EDT Sexual Orientation Straight 03/06/2022 10 :18 AM EDT documented as of this encounter Plan of Treatment Not on file documented as of this encounter Visit Diagnoses Not on filedocumented in this encounter Care Teams Hotel Maid Relationship Specialty Start Date End Date Figueroa Kramer MD [address] [place] [address] PCP - General Internal Medicine 04/15/21 documented as of this encounter
--- OUTSIDE RECORDS SUMMARY | 2024-06-02 20:09 | XMS_ITS | Clinical Summary ---
Author Organization [employer] Address [address] [facility] [address]t [place] [address] Care Team Providers Care Hiv Counselor Name Role Phone Figueroa Kramer MD Primary Care Prov ider Allergies Active Allergy Reactions Criticality Noted Date Comments Amoxicillin Rash Low 06/07/2010 Penicillin G High 04/10/2012 Other Reaction(s): HIVES/SWELLING Medications * This document contains information received from the source organization and may not represent a complete record from that organization. dextran 70-hypromello se (artificial tears) 0.1-0.3 % ophthalmic solution Apply 2 drops to each eye at bedtime 12/03/19 22 Active Vit-Fe Fumarate-FA ( Vitamin) 27-0.8 MG tablet take tab orally daily 05/30/19 22 Active lidocaine (Lidoderm) 5 % patch apply 1 patch by transdermal route every day (May wear up to 12hours.) as needed for pain 06/24/19 20 Active doxycycline (Adoxa) 100 MG tablet take 1 tablet by oral route 2 times every day 01/11/20 22 Active cyclobenzapri ne (Flexeril) 10 MG tablet take 1 tablet by oral route 3 times every day 08/03/19 22 Active cetirizine (ZyrTEC) 10 MG tablet 1 tablet by Oral route every day prn allergy symptoms 10/20/19 21 Active albuterol 108 (90 Base) MCG/ACT inhaler inhale 2 puff by inhalation route every 4 - 6 hours as needed 04/14/20 19 Active acetaminophen (Tylenol 8 Hour) 650 MG ER tablet take 2 tablet by oral route every 8 hours as needed swallowing whole with water. Do not break, crush, dissolve and/or chew. 02/12/20 19 Active sertraline (Zoloft) 50 MG tabletIndicat ions:Major depressive disorder with single episode, in full remission (CMS/HCC) TAKE 1 TABLET BY MOUTH EVERY DAY IN THE MORNING 90 tablet 1 12/01/19 23 Active hydrOXYzine HCl (Atarax) 25 MG tablet TAKE 1 TABLET BY MOUTH 4 TIMES A DAY NEEDED FOR ANXIETY 90 tablet 2 03/15/20 23 Active ketotifen (Alaway) 0.025 % ophthalmic solution Administer 1 drop into both eyes 2 times daily. 30 mL 2 05/01/20 23 Active fluticasone (Flonase) 50 MCG/ACT nasal spray SPRAY 1 SPRAY INTO EACH NOSTRIL EVERY DAY 48 mL 11/05/19 24 Active methocarbamol (Robaxin) 750 MG tabletIndicat ions:Neck pain Take 1 tablet (750 mg) by mouth 4 times daily for 10 days. 40 tablet 11/27/19 24 Active Diclofenac Sodium 1 % gelIndication s:Neck pain To apply to the affected area 3 times a day 100 g 11/27/19 24 Active SUMAtriptan (Imitrex) 50 MG tablet TAKE 1 TAB 1 TIME IF NEEDED FOR MIGRAINE MAY REPEAT DOSE ONCE IN 2 HRS IF NO RELIEF MAX 2 IN 24 HRS. 9 tablet 05/28/19 25 Active traMADol (Ultram) 50 MG tabletIndicat ions:Neck pain Take 1 tablet (50 mg) by mouth every 12 (twelve) hours if needed for severe pain for up to 8 days. 15 tablet 05/28/19 25 025 Active predniSONE (Deltasone) 20 MG tabletIndicat ions:Neck pain Take 1 tablet (20 mg) by mouth Once per day for 5 days. 5 tablet 05/28/19 25 025 Active SUMAtriptan (Imitrex) 50 MG tablet TAKE 1 TAB 1 TIME IF NEEDED FOR MIGRAINE MAY REPEAT DOSE ONCE IN 2 HRS IF NO RELIEF MAX 2 IN 24 HRS. 9 tablet 04/18/20 24 025 Discontinued SUMAtriptan (Imitrex) 50 MG tablet TAKE 1 TAB 1 TIME IF NEEDED FOR MIGRAINE MAY REPEAT DOSE ONCE IN 2 HRS IF NO RELIEF MAX 2 IN 24 HRS. 9 tablet 05/15/19 25 025 Discontinued(Re order (will not trigger notification to Pharmacy)) Active Problems Problem Noted Date Diagnosed Date Neck pain 05/28/2024 CASANDRA (generalized anxiety disorder) 12/07/2023 Recurrent major depressive disorder 12/07/2023 Burning sensation of toe and foot 05/01/2023 Assessment & Plan (05/01/2023 12:29 PM EST): Symptoms started 1 weeks ago, she refers being on socks and foot wear while cleaning the house, video was used for visit and there is no scaling, I did not noticed any swelling, there was erythema, and she refers is tender, with tingling and burning sensation, both feet are affected, there is no sign of infection, could be related to a chemical/allergic reaction??, Erythromelalgia, less likely a venous artery condition but will order a u/s to r/o, told to apply moisturizer and avoid hot water which she was doing, if no improvement in 1 week call back Encounters Date Type Department Care Team Description 05/28/2024 8:45 AM EST Telemedicine [facility] [address] [place] [address] Figueroa Kramer MD Cervical pain (Primary Dx); Neck pain 05/28/2024 Travel 05/27/2024 Telephone [facility] [address] [place] [address] Figueroa Kramer MD chart prep 05/25/2024 Orders Only [facility] [address] [place] [address] Figueroa Kramer MD Cervical pain (Primary Dx) 05/23/2024 Telephone [facility] [address] [place] [address] Figueroa Kramer MD switch pcp 05/20/2024 Telephone [facility] [address] [place] [address] Figueroa Kramer MD Call Back Request (/) 05/15/2024 Refill [facility] [address] [place] [address] Figueroa Kramer MD 05/09/2024 Orders Only [facility] [address] [place] [address] Sapna Davis MD Neck pain (Primary Dx) 05/09/2024 Telephone [facility] [address] [place] [address] Jessi Gregg RN Request for neck X Ray and chiro referral 04/23/2024 Telephone [facility] [address] [place] [address] Figueroa Kramer MD Referral 04/18/[address] [address] Figueroa Kramer MD 04/17/2024 11:30 AM EST Office Visit [facility] [address] [place] [address] Figueroa Kramer MD Cervical pain (Primary Dx) 04/17/2024 Travel 04/11/2024 Telephone [facility] [address] [place] [address] Figuerao Kramer MD Nurse Triage 03/12/2024 Telephone [facility] [address] [place] [address] Figueroa Kramer MD No Show 03/12/[address] [address] Figueroa Kramer MD Nurse Triage from Last 3 Months Social History Tobacco Use Types Packs/Day Years Used Date Smoking Tobacco: Every Day Pipe Passive Smoke Exposure: Past Tobacco Cessation:Ready to Q uit: Not Asked; Counseling Given: Not Answered Comments:Vape occasionally : daily. Depression Answer Date [...] Orientation Straight 03/06/2022 10 :18 AM EDT Last Filed Vital Signs Vital Sign Reading Time Taken Comments Blood Pressure 138/93 04/17/2024 11:53 AM EST Pulse 88 04/17/2024 11:53 AM EST Temperature 36.4 ??C (97.6 ??F) 04/17/2024 11:[address] Respiratory Rate 20 04/17/2024 11:53 AM EST Oxygen Saturation 98% 04/17/2024 11:53 AM EST Inhaled Oxygen Concentration - - Weight 68 kg (150 lb) 04/17/2024 11:53 AM EST Height 165.1 cm (5' 5 ) 04/17/2024 11:53 AM EST Body Mass Index 24.96 04/17/2024 11:53 AM EST Plan of Treatment Health Maintenance Due Date Last Done Comments Lipid Panel 1997 SDOH Screening 1997 Pneumococcal Vaccine: Pediatrics (0 to 5 Years) and At-Risk Patients (6 to 64 Years) (1 of 2 - PCV) 07/28/2003 Alcohol/Substance Use Screening 2009 Family Planning (PISQ) 2012 Hepatitis A Vaccines (2 of 2 - Risk 2-dose series) 03/26/2015 09/23/2014 COVID-19 Vaccine (2 - season) 2024 04/20/2021 Influenza Vaccine (#1) 2024 6, 02/02/2014, 02/27/2013, Additional history exists Depression Monitoring (PHQ-9) 06/08/2024 12/07/2023, 12/07/2023 Pap Smear 07/08/2024 07/08/2021 Depression Screening 12/06/2024 12/07/2023, 12/07/19 Tobacco Screening 12/06/2024 12/07/2023 DTaP/Tdap/Td Vaccines (9 - Td or Tdap) 11/26/2031 11/25/2021, 07/01/2018, 07/31/2008, Additional history exists Zoster Vaccines (1 of 2) 07/28/2047 RSV Patients and Patients Aged 60 years or older (1 - 1-dose 75+ series) 2072 Hepatitis B Vaccines Completed 01/29/1998, 1997, 1997 HIB Vaccines Aged Out 1998 No longer eligi ble based on patient's age to complete this topic IPV Vaccines Completed 08/01/2001, 11/05, 1997 HPV Vaccines Completed 02/04/2007, 10/05, 08/03/2006 Meningococcal Vaccine Completed 09/23/2014, 009 HIV Screening Completed 07/13/2021 RSV under 20 months Aged Out No longe r eligible based on patient's age to complete this topic Rotavirus Vaccines Aged Out No longer eligible based on patient's age to complete this topic Procedures Procedure Name Priority Date/Time Associated Diagnosis Comments XR CERVICAL SPINE 4V Routine 05/15/2024 9:36 AM EST Neck pain ZZZ HISTORICAL HEPATITIS C ANTIBODY Routine 07/13/2021 9:25 AM EST HM PAP/HPV Routine 07/08/2021 from Last 3 Months or Most Recently Relevant to Health Maintenance Results * XR CERVICAL SPINE 4V (05/15/2024 9:36 AM EST) Anatomical Region Laterality Modality Abdomen Radiographic Ivania ging 05/15/2024 9:36 AM EST Narrative 05/19/2024 10:43 AM EST ? [facility] ?[address] ?[place] [address] ?XRay Report ? Signed ? Patient: Carleen,Vandana ?MR#: [id number] ?? [id number] ? : 1995 ?Acct:[id number] ? Age/Sex: 28 / F ?ADM Date: 01/09/25 ? Loc: HO.XRAY ? Attending Dr: Sapna Davis MD ? Ordering Physician: Sapna Davis MD ?? Date of Service: 05/15/24 ?? Procedure(s): XR cervical spine 4V ?? Accession Number(s): [id number] ? cc: Sapna Davis MD ? EXAMINATION: [...] ??Nafisa Lara MD ??05/19/2024 10:40 AM EST ?? RP ? Dictated By: ?Nafisa Lara MD ? Signed By: ?<Electronically signed by Nafisa Lara MD in OV> ? 05/19/24 1040 ? DD/ 0936 ? TD/TT: 05/15/24 1022 ? Green Marketing Analyst: ? Procedure Note Donjenniferter, Image - 05/19/2024 [place] [address] XRay Report Signed Patient: Vandana DurantMR#: [id number] : 1995Acct:[id number] Age/Sex: Date: 05/15/24 Loc: [facility] Attending Dr: Sapna Davis MD Ordering Physician: Sapna Davis MD Date of Service: 05/15/24 Procedure(s): XR cervical spine 4V Accession Number(s): [id number] cc: Sapna Davis MD EXAMINATION: XR CERVICAL [...] 05/19/24 1040 DD/ 0936 TD/TT: 05/15/24 1022 Green Marketing Analyst: Sapna Davis MD IMG XR PROCEDURES Edited Resu lt - Final * (ABNORMAL) Hepatitis C Antibody (07/13/2021 9:25 AM EST) Hepatitis C Antibody Reactive(A) Nonreactive [facility] Comment:Presumptive evidence of antibodies to HCV. HIV AB/AG Nonreactive Nonreactive [facility] Comment: HIV-1 p24 Ag and/or HIV-1/HIV-2 Ab not detected. ?? A test result that is nonreactive does not exclude the possibility of exposure to or infection with HIV-1 and/or HIV-2. Nonreactive results in this assay for individuals with prior exposure to HIV-1 and/or HIV-2 may be due to antigen and antibody levels that are below the limit of detection of this assay. ?? The [employer] HIV Ag/Ab Combo assay result and supplemental assay results should be interpreted in conjunction with the patient's clinical presentation, history and other laboratory results. ??If the results are inconsistent with clinical evidence, additional testing is suggested to confirm the result. Hepatitis B Surface Antigen Negative Negative [facility] 07/13/2021 9:25 AM EST Jenae Reed HISTORICAL/NON ORDERABLE LABS Fi nal Result [facility] [address] * Hm Pap Smear (07/08/2021) Pap Negative for intraephithelial lesion or malignancy Negative for intraephithelial lesion or malignancy, Other Historical Provider HEALTH MAINTENANCE Final Result from Last 3 Months or Most Recently Relevant to Health Maintenance Insurance [facility] C3 Care Teams Hiv Counselor Relationship Specialty Start Date End Date Figueroa Kramer MD [address] [place] [address] DICK Agosto [id number] PCP - General Internal Medicine 04/15/21
--- OUTSIDE RECORDS SUMMARY | 2024-06-02 20:09 | XMS_ITS | Encounter Summary ---
Author Organization [employer] Address [address] [address] Care Team Providers Care Waist Pleater Name Role Phone Figueroa Kramer MD Primary Care Prov ider Reason for Visit * Reason Onset Date Comments Referral 04/23/2024 Encounter Details Date Type Department Care Team ([facility] Contact Info) Description 04/23/2024 Telephone [facility] [address] [place] [address] Figueroa Kramer MD [address] [place], [place] [phone] Referral Social History Tobacco Use Types Packs/Day Years [...] encounter Miscellaneous Notes * Telephone Encounter - Rudolph Freeman - 05/09/2024 9:49 AM EST Tc from pt requesting status on referral for a chiropractic & X-Ray for neck as pt currently still on pain and can't barely move. * Telephone Encounter - Mojgan Falk - 05/01/2024 10:41 AM EST Tc from pt requesting status on XRAY order. Pt stated is still having severe pain. Please contact at [phone] * Telephone Encounter - Bladimir Sanchez - 04/23/2024 10:35 AM EST Tc from pt requesting a refferal to [place] [facility] Pt would also like a refferal to see a Chiropractor. She dosent have ny place in mind just would like to see one de to the neck and lowerback pain that she has been having. Contact pt at [phone] documented in this encounter Plan of Treatment Not on file documented as of this encounter Visit Diagnoses Not on filedocumented in this encounter Additional Health Concerns Assessment Noted Time PHQ-9 Depression Total Score: 13 024 12:09 PM EDT documented as of this encounter Care Teams Waist Pleater Relationship Specialty Start Date End Date Figueroa Kramer MD [address] [place] [address] PCP - General Internal Medicine 04/15/21 documented as of this encounter
--- OUTSIDE RECORDS SUMMARY | 2024-06-02 20:09 | XMS_ITS | Encounter Summary ---
Author Organization [employer] Address [address] [place] [address] Care Team Providers Care Metal Tester Name Role Phone Figueroa Kramer MD Primary Care Prov ider Reason for Visit * Reason Comments Med Refill Encounter Details Date Type Department Care Team (Late st Contact Info) Description 02/08/[address] [facility] [address] [place] [address] Figueroa Kramer MD [address] [place] [address] Social History Tobacco Use Types Packs/Day Years [...] on filedocumented in this encounter Care Teams Metal Tester Relationship Specialty Start Date End Date Figueroa Kramer MD [address] [place] [address] PCP - General Internal Medicine 04/15/21 documented as of this encounter
--- OUTSIDE RECORDS SUMMARY | 2024-06-02 20:09 | XMS_ITS | Encounter Summary ---
Author Organization [employer] Address 75 [facility] [address], [place] [address] Care Team Providers Care Degreasing Wheel Operator Name Role Phone Figueroa Kramer MD Primary Care Prov ider Encounter Details Date Type Department Care Team ([facility] Contact Info) Description 02/08/2023 Abstract [facility] [address] [place], [place] [phone] Shilpa Moreira Social History Tobacco Use Types Packs/Day Years [...] Procedure Name Priority Date/Time Associated Diagnosis Comments PAP/HPV Routine 07/08/2021 documented in this encounter Results * Hm Pap Smear (07/08/2021) Pap Negative for intraephithelial lesion or malignancy Negative for intraephithelial lesion or malignancy, Other us Historical Provider HEALTH MAINTENANCE Final Result documented in this encounter Visit Diagnoses Not on filedocumented in this encounter Care Teams Degreasing Wheel Operator Relationship Specialty Start Date End Date Figueroa Kramer MD [address] [place] [address] PCP - General Internal Medicine 04/15/21 documented as of this encounter
--- OUTSIDE RECORDS SUMMARY | 2024-06-02 20:09 | XMS_ITS | Encounter Summary ---
Author Organization [employer] Address 75 [facility] [address] [place] [address] Care Team Providers Care Brick Machine Operator Name Role Phone Figueroa Kramer MD Primary Care Prov ider Reason for Visit * Reason Onset Date Comments Nurse Triage 11/23/2023 Encounter Details Date Type Department Care Team ([facility] Contact Info) Description 11/23/2023 Telephone [facility] [address] [place] [address] Figueroa Kramer MD [address] [place], [place] [phone] Nurse Triage Social History Tobacco Use Types Packs/Day Years Used Date Smoking Tobacco: Never Assessed Comments Unknown Sex and Gender Information Value Date Recorded Sex Assigned at Female 03/06/2022 10:18 AM EDT Legal Sex Female 10:18 AM EDT Gender Identity Female 03/06/2022 10:18 AM EDT Sexual Orientation Straight 03/06/2022 10 :18 AM EDT documented as of this encounter Miscellaneous Notes * Telephone Encounter - Sarah Espitia RN - 11/23/2023 9:36 AM EDT Triage call Pt reports a bumpy, itchy area on right hand , index finger. Pt reports it is bumpy with clear bubbles in it. Pt reports having had scabies before and this looks exactly the same as what Pt had then. Pt reports a friends daughter had scabies 4 weeks prior but, denies contact with the person. Pt is offered apt in [facility] today but declines because transportation won't be available [id number]. Pt reports will go to urgent care at that time instead and will call for follow up if needed. Pt agrees with this plan. Protocol Used: Rash or Redness - Localized (Adult) Protocol-Based Disposition: See in Office or Video Visit Today Video visit not offered Positive Triage Question: * Patient wants to be seen * All higher-acuity triage questions were negative Care Advice Discussed: * Reasons To Call Back - Rash spreads or becomes worse - Rash lasts longer than 1 week - You become worse * Telephone Encounter - Sandeep Guadalupe - 11/23/2023 9:17 AM EDT Symptom: Skin Lump Outcome: Schedule an appointment to be seen within 3 days Reason: Caller denied all higher acuity questions documented in this encounter Plan of Treatment Not on file documented as of this encounter Visit Diagnoses Not on filedocumented in this encounter Care Teams Brick Machine Operator Relationship Specialty Start Date End Date Figueroa Kramer MD [address] [place] [address] PCP - General Internal Medicine 04/15/21 documented as of this encounter
--- OUTSIDE RECORDS SUMMARY | 2024-06-02 20:09 | XMS_ITS | Encounter Summary ---
Author Organization [employer] Address [address] [address] Care Team Providers Care Burn Out Tender Lace Name Role Phone Figueroa Kramer MD Primary Care Prov ider Reason for Visit * Reason Onset Date Comments Call Back Request 05/20/2024 Encounter Details Date Type Department Care Team ([facility] Contact Info) Description 05/20/2024 Telephone [facility] [address] [place] [address] Figueroa Kramer MD [address] [place] [address] Call Back Request (/) Social History Tobacco Use Types Packs/Day Years [...] encounter Miscellaneous Notes * Telephone Encounter - Joelle Valenciante - 05/27/2024 8:49 AM EST Tc from pt requesting a call back regarding prior messages. Pt expressed frustration and is requesting to speak to typing office worker. Contact pt at [phone] * Telephone Encounter - Michael Cardozo - 05/23/2024 8:48 AM EST TC from pt has questions regarding Xray of neck . States normal results back in December and does not explain the pain she has been having for months and is wanting more diagnostic testing ( possible MRI ) * Telephone Encounter - Bladimir Sanchez - 05/21/2024 8:10 AM EST Tc from pt returning call stating that they called her moms phone instead of Her cell Phone. Pt would like to Discuss prior message. Contact pt at [phone] * Telephone Encounter - Elisha Martines RN - 05/20/2024 1:43 PM EST Left message to return call to office. * Telephone Encounter - Dannielle Stewart - 05/20/2024 11:15 AM EST Tc from pt requesting a call back in regards concerns about last results. documented in this encounter Plan of Treatment Not on file documented as of this encounter Visit Diagnoses Not on filedocumented in this encounter Additional Health Concerns Assessment Noted Time PHQ-9 Depression Total Score: 13 024 12:09 PM EDT documented as of this encounter Care Teams Burn Out Tender Lace Relationship Specialty Start Date End Date Figueroa Kramer MD [address] [place] [id number] PCP - General Internal Medicine 04/15/21 documented as of this encounter
--- OUTSIDE RECORDS SUMMARY | 2024-06-02 20:09 | XMS_ITS | Encounter Summary ---
Author Organization [employer] Address [address] [place] [address] Care Team Providers Care Rail Washer Name Role Phone Figueroa Kramer MD Primary Care Prov ider Reason for Visit * Reason Onset Date Comments chart prep 05/27/2024 Encounter Details Date Type Department Care Team ([facility] Contact Info) Description 05/27/2024 Telephone [facility] [address] [place] [address] Figueroa Kramer MD [address] [place] [address] chart prep Social History Tobacco Use Types Packs/Day Years [...] encounter Miscellaneous Notes * Telephone Encounter - Leydi Monroe [place] - 05/27/2024 3:15 PM EST Chart Prep Labs: done Images: done Vaccines due: yes Referrals: pending appt Screenings: pap smear Overdue care gaps: Sbirt, SDOH documented in this encounter Plan of Treatment Not on file documented as of this encounter Visit Diagnoses Not on filedocumented in this encounter Additional Health Concerns Assessment Noted Time PHQ-9 Depression Total Score: 13 024 12:09 PM EDT documented as of this encounter Care Teams Rail Washer Relationship Specialty Start Date End Date Figueroa Kramer MD [address] [place] [address] PCP - General Internal Medicine 04/15/21 documented as of this encounter
--- OUTSIDE RECORDS SUMMARY | 2024-06-02 20:09 | XMS_ITS | Encounter Summary ---
Author Organization [employer] Address [address] [address] Care Team Providers Care Cmo Name Role Phone Figueroa Kramer MD Primary Care Prov ider Reason for Visit * Reason Onset Date Comments FYI 05/02/2023 Encounter Details Date Type Department Care Team ([facility] Contact Info) Description 05/02/2023 Telephone [facility] [address] [place] [address] Figueroa Kramer MD [address] [place] [address] FYI Social History Tobacco Use Types Packs/Day Years Used Date Smoking Tobacco: Never Assessed Comments Unknown Sex and Gender Information Value Date Recorded Sex Assigned at Female 03/06/2022 10:18 AM EDT Legal Sex Female 10:18 AM EDT Gender Identity Female 03/06/2022 10:18 AM EDT Sexual Orientation Straight 03/06/2022 10 :18 AM EDT documented as of this encounter Miscellaneous Notes * Telephone Encounter - Tiffany Pat - 05/02/2023 4:06 PM EST Tc from [facility] calling to inform PCP they don't do Vascular US lower extremity arterial duplex bilateral documented in this encounter Plan of Treatment Not on file documented as of this encounter Visit Diagnoses Not on filedocumented in this encounter Care Teams Cmo Relationship Specialty Start Date End Date Figueroa Krmaer MD [address] [place] [id number] PCP - General Internal Medicine 04/15/21 documented as of this encounter
== END 2024-06-02 17:47 | disposition home or self-care (01) ==
LOC: HO.MRI 17:46
PROVIDERS: PCP Pediatrics; Visit Provider Internal Medicine
DX: M54.2 Cervicalgia (principal)
CPT/HCPCS: 72141